=== PATIENT | male | born 1955 | race Caucasian/White ===

== ENCOUNTER 2017-12-26 14:44 | Outpatient (CLI) | payer MEDICARE ==
[2017-12-26 15:37] LABS: CREATININE 0.6 mg/dL (0.6-1.2)
[2017-12-26] MEDS ORDERED: GADOBUTROL 10 MMOL/10 ML VIAL ONE (16:08)
== END 2017-12-26 14:45 | disposition home or self-care (01) ==
LOC: DI 14:44
PROVIDERS: ATTEND Specialist
DX: Z01.812 Encounter for preprocedural laboratory examination (principal)
CPT/HCPCS: 36415; 72158; 82565

== ENCOUNTER 2018-01-17 13:44 | Outpatient (CLI) | payer MEDICARE ==
--- NOTE | 2018-01-18 19:25 | MRI Report ---
Procedure Date: 01/17/2018 Accession Number: [id number] / [id number] Procedure: MRI - Lumbar Spine W/O CPT Code: FULL RESULT: EXAM: MRI LUMBAR SPINE WITHOUT CONTRAST EXAM DATE: 01/17/2018 02:30 PM. CLINICAL HISTORY: Low back pain. COMPARISON: Lumbar radiograph 11/17/2012. TECHNIQUE: Multiplanar, multisequence T1-weighted and fluid-sensitive sequences of the lumbar spine from T12 to S1 without contrast. Other: None. FINDINGS: Alignment: There is 6 cm anterolisthesis of L4 on L5. No evidence for pars defects. Spinal Canal: The conus terminates at T12-L1. The conus medullaris and cauda equina are unremarkable. Bone Marrow: Five [id number] lumbar vertebral bodies are assumed. No gross fractures or bone lesions. No bone marrow replacement. Disk Levels/Facets: T12-L1: Unremarkable. L1-L2: Disk desiccation. No significant canal or foraminal narrowing. L2-L3: Disk desiccation. Posterior annular fissure. No significant canal or foraminal narrowing. L3-L4: Disk desiccation. Mild facet arthropathy. No significant canal or foraminal narrowing. L4-L5: Moderate disk height loss. Bilateral facet arthropathy and ligamentum flavum thickening. Focal rounded 4.5 mm T2 hyperintense medially projecting left facet synovial cyst. Mild bilateral subarticular narrowing. Mild to moderate canal narrowing. Mild bilateral foraminal narrowing. L5-S1: Disk desiccation. Mild facet arthropathy. No significant canal narrowing. Mild left foraminal narrowing secondary to a foraminal bulge. Musculature: Normal. No edema or fatty atrophy. Other: The partially visualized retroperitoneum is unremarkable. IMPRESSION: 1. 6 mm anterolisthesis of L4 on L5. No evidence for pars intra-articularis defects. 2. Mild to moderate canal narrowing at L4-L5 with mild bilateral subarticular narrowing. 3. At L4-L5, suspect 4.5 mm medially projecting left facet synovial cyst without impingement of the left L5 nerve root. Comment: The following findings are so common in adults without low back pain that while we report their presence, they must be interpreted with caution and in the context of the clinical situation. (Reference Juliank et al, Spine 2001) Prevalence of findings in patients without low back pain: Disk degeneration (any evidence): 92% Disk desiccation/T2 signal loss: 83% Disk height loss: 56% Disk bulge: 64% Disk protrusion: 32% Annular tear/high intensity zone: 38% RADIA
== END 2018-01-17 13:45 | disposition home or self-care (01) ==
LOC: DI 13:44
PROVIDERS: ATTEND Specialist
DX: M51.36 Other intervertebral disc degeneration, lumbar region (principal); M47.896 Other spondylosis, lumbar region; M43.16 Spondylolisthesis, lumbar region; M48.061 Spinal stenosis, lumbar region without neurogenic claudication
CPT/HCPCS: 72148

== ENCOUNTER 2018-12-07 17:22 | Outpatient (CLI) | payer MEDICARE ==
--- NOTE | 2018-12-07 22:52 | Ultrasound Report ---
Reason: BILATERAL LE EDEMA AND PAIN Procedure Date: 12/07/2018 Accession Number: [id number] / [id number] Procedure: US - Duplex Ext Veins Bilateral CPT Code: FULL RESULT: EXAM: BILATERAL LOWER EXTREMITY VENOUS ULTRASOUND EXAM DATE: 12/07/2018 06:11 PM. CLINICAL HISTORY: BILATERAL LE EDEMA AND PAIN. COMPARISON: None. TECHNIQUE: Real-time sonographic vascular imaging was performed by the sales support coordinator through the lower extremities utilizing both color-flow and Doppler spectral analysis. Multiple arborist representative static images were saved for review. FINDINGS: Right: Common Femoral Vein (CFV): Normal. CFV-GSV Junction: Normal. Profunda Femoral Vein (PFV): Normal. Femoral Vein (FV) Prox: Normal. Femoral Vein (FV) Mid: Normal. Femoral Vein (FV) Dist: Normal. Popliteal Vein: Normal. Posterior Tibial Veins: Normal. Peroneal Veins: Normal. Left: Common Femoral Vein (CFV): Normal. CFV-GSV Junction: Normal. Profunda Femoral Vein (PFV): Normal. Femoral Vein (FV) Prox: Normal. Femoral Vein (FV) Mid: Normal. Femoral Vein (FV) Dist: Normal. Popliteal Vein: Normal. Posterior Tibial Veins: Normal. Peroneal Veins: Normal. Other: None. IMPRESSION: No evidence for deep venous thrombosis bilaterally. RADIA
== END 2018-12-07 17:23 | disposition home or self-care (01) ==
LOC: DI 17:22
PROVIDERS: ATTEND Physician Assistant Medical
DX: M79.605 Pain in left leg (principal); M79.604 Pain in right leg; R60.0 Localized edema
CPT/HCPCS: 93970

== ENCOUNTER 2018-12-11 14:01 | Outpatient (CLI) | payer MEDICARE ==
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
== END 2018-12-11 14:02 | disposition home or self-care (01) ==
LOC: DI.N 14:01
PROVIDERS: ATTEND Specialist
DX: M17.11 Unilateral primary osteoarthritis, right knee (principal); M79.5 Residual foreign body in soft tissue

== ENCOUNTER 2018-12-27 14:39 | Outpatient (CLI) | payer MEDICARE ==
--- NOTE | 2018-12-29 10:25 | MRI Report ---
Reason: ACUTE R KNEE PAIN Procedure Date: 12/27/2018 Accession Number: [id number] / [id number] Procedure: MRI - Knee RT W/O CPT Code: FULL RESULT: EXAM: RIGHT KNEE MRI WITHOUT CONTRAST EXAM DATE: 12/27/2018 04:02 PM. CLINICAL HISTORY: Acute right knee pain and limited range of motion. COMPARISON: KNEE 3 VIEW RT 12/11/2018 2:23 PM. TECHNIQUE: Multiplanar, multisequence T1-weighted and fluid-sensitive sequences of the knee without contrast. Other: None. FINDINGS: Bones and articular cartilage: Full-thickness articular cartilage fissure/tear at the posterior lateral aspect of the medial femoral condyle. Subchondral marrow edema at the medial tibial plateau. Grade II chondromalacia of the medial tibial plateau. No acute fracture or bone lesions. Tiny patellar and medial femoral condylar osteophytes. Small patellar enthesophytes. Small partial-thickness articular cartilage fissure at the patella. Focal grade III-IV chondromalacia and subchondral marrow edema at the lateral trochlear facet. Medial Meniscus: Oblique tear involving the inner and middle thirds of the posterior horn. Lateral Meniscus: The lateral meniscus is intact. Cruciate Ligaments: The anterior and posterior cruciate ligaments are intact. Collateral Ligaments: The medial collateral and lateral collateral ligamentous structures are intact. Tendons: The quadriceps, patellar, semimembranosus, and popliteus tendons are unremarkable. Musculature: No edema or fatty atrophy. Other: Small joint effusion. No popliteal cyst. No loose bodies. The medial and lateral retinacula are intact. The subcutaneous tissues and fat pads are unremarkable. IMPRESSION: 1. Chondromalacia at the medial and patellofemoral compartments. 2. Oblique tear at the posterior horn medial meniscus. 3. Small joint effusion. RADIA
== END 2018-12-27 14:40 | disposition home or self-care (01) ==
LOC: DI 14:39
PROVIDERS: ATTEND Physician Assistant Medical
DX: S83.241A Other tear of medial meniscus, current injury, right knee, initial encounter (principal); M22.41 Chondromalacia patellae, right knee; M25.462 Effusion, left knee

== ENCOUNTER 2019-03-21 13:23 | Outpatient (CLI) | payer MEDICARE ==
[~2019-03-21 13:23] MED LIST: ALBUTEROL NEB 2.5 MG/3 ML INH SCH
== END 2019-03-21 13:24 | disposition home or self-care (01) ==
LOC: RT 13:23
PROVIDERS: ATTEND Physician Assistant Medical
DX: J44.9 Chronic obstructive pulmonary disease, unspecified (principal); R06.09 Other forms of dyspnea
CPT/HCPCS: 94060

== ENCOUNTER 2019-03-22 10:26 | Outpatient (CLI) | payer MEDICARE | END 2019-03-22 10:27 | disposition home or self-care (01) | LOC: DI 10:26 | PROVIDERS: ATTEND Physician Assistant Medical | DX: R06.00 Dyspnea, unspecified (principal); R60.0 Localized edema; I51.7 Cardiomegaly | CPT/HCPCS: 93306 ==

== ENCOUNTER 2020-07-16 11:11 | Outpatient (CLI) | payer MEDICARE ==
[2020-07-16] MEDS ORDERED: IOVERSOL 320 50 ML VIAL ONE (11:25)
[2020-07-16] MEDS ORDERED: IOVERSOL 320 100 ML VIAL IVP ONE ×2 (11:25→15:18)
[2020-07-16 11:34] LABS: CREATININE 0.8 mg/dL (0.6-1.2)
--- NOTE | 2020-07-16 14:24 | CT Report ---
PROCEDURE: Abdomen/Pelvis W INDICATIONS: ABD PAIN CONTRAST: IV CONTRAST: Optiray 320 ml: 100 PO CONTRAST: Optiray 320 ml50 TECHNIQUE: After the administration of oral and IV contrast, 5 mm thick sections acquired from the diaphragms to the symphysis. 5 mm thick coronal and sagittal reformats were acquired. For radiation dose reducti on, the following was used: automated exposure control, adjustment of mA and/or kV according to [place] ent size. COMPARISON: 05/30/2015 FINDINGS: Image quality: Excellent. ABDOMEN: Lung bases: Lung bases are clear. Heart size is normal. Solid organs: The liver is enlarged, moderately diffusely hypodense, and demonstrates focal 1.3 cm h ypodensity near the liver dome, likely a cyst or hemangioma. The spleen appears normal in size and en hancement. Gallbladder demonstrates phrygian cap morphology, but otherwise unremarkable. Biliary sy stem is non dilated. There is fatty replacement of much of the pancreas. No pancreatic ductal dilatat ion.. No adrenal nodules. Kidneys demonstrate normal size and enhancement, without hydronephrosis. 1.2 cm indeterminate exophytic cystic lesion arises from the anterior left upper pole. Peritoneum and bowel: Bowel loops demonstrate normal wall thickness and caliber. Normal appendix. N o free fluid or air. Nodes and vessels: No retroperitoneal or mesenteric adenopathy by size criteria. Aorta and inferior vena cava are normal in size. Miscellaneous: No ventral hernias. PELVIS: Genitourinary: Bladder wall thickness is normal. Normal size prostate gland. Miscellaneous: No inguinal hernias or adenopathy. Bones: No suspicious bony lesions. Chronic appearing superior endplate compression of T10. Right hip arthroplasty. Degenerative changes and grade 1 anterolisthesis in the lumbar spine at the L4-5 level . IMPRESSION: 1. Mild hepatomegaly and hepatic steatosis. Not significantly changed compared to the prior study. 2. 1.2 cm indeterminant cystic lesion arising from the upper pole of the left kidney, previously much smaller. Further evaluation with ultrasound or renal protocol CT/MRI is recommended. Reviewed by: Karma Majano MD on 07/16/2020 2:22 PM PST Approved by: Karma Majano MD on 07/16/2020 2:22 PM PST Station ID: [id number]
[2020-07-16] MEDS ORDERED: IOVERSOL 320 50 ML VIAL PO ONE (15:17)
== END 2020-07-16 11:12 | disposition home or self-care (01) ==
LOC: DI 11:11
PROVIDERS: ATTEND Family Medicine
DX: R10.9 Unspecified abdominal pain (principal); K76.0 Fatty (change of) liver, not elsewhere classified; R16.0 Hepatomegaly, not elsewhere classified; N28.1 Cyst of kidney, acquired
CPT/HCPCS: 36415; 74177; 82565; Q9967

== ENCOUNTER 2020-08-02 09:33 | Outpatient (CLI) | payer MEDICARE ==
[2020-08-02] MEDS ORDERED: IOVERSOL 320 100 ML VIAL IVP ONE ×3 (09:53→10:21)
--- NOTE | 2020-08-02 17:25 | CT Report ---
PROCEDURE: ABDOMEN W/WO INDICATIONS: LT RENAL CYST CONTRAST: IV CONTRAST: Optiray 320 ml: 140 PO CONTRAST: *NO PO CONTRAST TECHNIQUE: Prior to and after the uneventful intravenous administration of nonionic contrast axial images were p erformed of the abdomen utilizing a dedicated renal protocol study. Multiplanar reformats were provid ed. COMPARISON: None. FINDINGS: Image quality: Excellent. Lung bases: Lung bases are clear. Heart size is normal. Adrenal glands: CT abdomen and pelvis dated 07/16/2020 Solid organs: There is slight decreased hepatic attenuation diffusely. There is mild hepatomegaly, un changed. Fluid density 1.3 cm simple cyst within the dome of the liver. This is unchanged. Gallbladde r demonstrates bridging cap morphology, otherwise unremarkable. Biliary system is non dilated. Fatty infiltration of the pancreas, otherwise unremarkable. No hydronephrosis or nephrolithiasis. Kidneys are symmetric in enhancement. There is no hydronephrosis. No urinary tract calcifications. Th ere is no suspicious filling defect within the opacified collecting system on the delayed phase. Exop hytic 1.4 cm lesion noted along the superior pole of the left kidney medially measures approximately 29 Hounsfield units on precontrast as well as the arterial and delayed phases. No suspicious solid ma ss. Peritoneum and bowel: Unenhanced bowel loops are normal in caliber and wall thickness. No free flui d or air. Nodes and vessels: No retroperitoneal or mesenteric adenopathy by size criteria. Aorta and inferior vena cava are normal in size. Miscellaneous: No ventral hernias. Bones: No suspicious bony lesions. Chronic compression deformity of the superior endplate of T10 is unchanged. Unchanged grade 1 anterolisthesis of L4 on L5. IMPRESSION: Cystic lesion along the upper pole of the left kidney demonstrates no enhancement and is most consist ent with a mucinous or hemorrhagic cyst. No suspicious solid mass. Chronic findings as above. Reviewed by: Ze Montesinos DO on 08/02/2020 4:24 PM [place] Approved by: Ze Montesinos DO on 08/02/2020 4:24 PM AKST Station ID: [id number]
== END 2020-08-02 09:34 | disposition home or self-care (01) ==
LOC: DI 09:33
PROVIDERS: ATTEND Family Medicine
DX: N28.1 Cyst of kidney, acquired (principal)
CPT/HCPCS: 74170; Q9967

== ENCOUNTER 2020-09-04 15:09 | Outpatient (CLI) | payer MEDICARE ==
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
== END 2020-09-04 15:10 | disposition home or self-care (01) ==
LOC: DI.N 15:09
PROVIDERS: ATTEND Physician Assistant
DX: M25.511 Pain in right shoulder (principal); S49.91XA Unspecified injury of right shoulder and upper arm, initial encounter; M19.011 Primary osteoarthritis, right shoulder

== ENCOUNTER 2020-09-12 17:14 | Emergency (ER) | payer MEDICARE ==
[2020-09-12] MEDS ORDERED: SODIUM CHLORIDE 0.9% 1,000 ML IV STA ×3 (17:51→18:27)
[2020-09-12 17:55] LABS: BASOPHILS # (AUTO) 0.1 10^3/uL (0.0-0.1); BASOPHILS % (AUTO) 0.4 %; EOSINOPHILS % (AUTO) 0.1 %; HCT - HEMATOCRIT 42.5 % (42.0-52.0); HGB - HEMOGLOBIN 13.9 g/dL (14.0-18.0); LYMPHOCYTES # (AUTO) 1.4 10^3/uL (1.5-3.5); LYMPHOCYTES % (AUTO) 8.7 %; MEAN CORPUSCULAR HEMOGLOBIN 30.2 pg (27.0-31.0); MEAN CORPUSCULAR HGB CONC 32.7 g/dL (32.0-36.0); MEAN CORPUSCULAR VOLUME 92.2 fL (80.0-94.0); MEAN PLATELET VOLUME 9.8 fL (7.4-11.4); MONOCYTES # (AUTO) 1.1 10^3/uL (0.0-1.0); MONOCYTES % (AUTO) 6.8 %; NEUTROPHILS # (AUTO) 13.1 10^3/uL (1.5-6.6); NEUTROPHILS % (AUTO) 83.7 %; PLT - PLATELET COUNT 299 10^3/uL (130-450); RED BLOOD COUNT 4.61 10^6/uL (4.70-6.10); RED CELL DISTRIBUTION WIDTH 13.5 % (12.0-15.0); WHITE BLOOD COUNT 15.7 x10^3/uL (4.8-10.8)
--- NOTE | 2020-09-12 18:03 | ED Physician Documentation ---
History of Present Illness - Stated complaint Stated Complaint: OD - Chief complaint Chief Complaint: Neuro - History obtained from History obtained from: Patient, Family - History of Present Illness Timing: Unknown Pain level max: 0 Pain level now: 0 - Additonal information Additional information: 65-year-old male presents to the emergency department after being brought in by his clarisa. She states he received 168 hydrocodone 10/325 tablets 2 days ago. She checked the bottle today and approximately 120 pills are missing. She states that the patient is more confused than usual and appears drowsy. Patient denies taking the medication. He states he does not know what happened to the medication. He states that he is not suicidal or homicidal. Patient denies any alcohol or drug use. Nothing makes it better or worse. He is on hydrocodone and morphine for shoulder pain Patient states he has not taken any pills since last night Review of Systems Unable to obtain: AMS, Confused Constitutional: denies: Fever, Chills Cardiac: denies: Chest pain / pressure Respiratory: denies: Cough GI: denies: Vomiting Skin: denies: Rash Musculoskeletal: denies: Neck pain Neurologic: denies: Headache PD PAST MEDICAL HISTORY - Past Medical History Cardiovascular: Hypertension, High cholesterol Respiratory: COPD Endocrine/Autoimmune: None GI: GERD, Colon polyps, Diverticulitis : None HEENT: Chronic hearing loss, Other Psych: Depression, Anxiety, Panic attacks Musculoskeletal: Osteoarthritis, Chronic back pain Derm: Psoriasis, Other - Past Surgical History Past Surgical History: Yes Ortho: Hip replacement, Knee replacement, Shoulder arthroplasty, Other - Present Medications Home Medications: Ambulatory Orders Medication Instructions Recorded Confirmed busPIRone [Buspar] 5 mg PO BID 05/04/14 09/12/20 Omeprazole 10 mg PO BID 03/06/15 09/12/20 clonazePAM [Clonazepam] 1 mg PO BID 03/06/15 11/18/15 HYDROcodone/ACET 10/325 [Briggs 10 1 tab PO DAILY 11/07/15 09/12/20 mg/325 mg] Morphine Sulfate/0.9% NaCl/Pf 30 mg PO BID 11/07/15 09/12/20 [Morphine 30 mg/30 ml-0.9% NaCl] Metoprolol Tartrate [Lopressor] 50 mg PO BID 11/18/15 09/12/20 Aspirin [Aspirin EC] 1 tab PO DAILY 09/12/20 09/12/20 - Allergies Allergies/Adverse Reactions: Allergies Allergy/AdvReac Type Severity Reaction Status Date / Time No Known Drug Allergies Allergy Verified 09/12/20 17:15 - Social History Does the pt smoke?: Yes Smoking Status: Light tobacco smoker Does the pt drink ETOH?: No Does the pt have substance abuse?: No - Immunizations Immunizations are current?: Yes - POLST Patient has POLST: No PD ED PE NORMAL - Vitals Vital signs reviewed: Yes - General General: No acute distress, Other (drowsy, slurring speech) - HEENT HEENT: EOMI, Moist mucous membranes, Pharynx benign, Other (pinpoint pupils B) - Neck Neck: Supple, no meningeal sign - Cardiac Cardiac: RRR, Strong equal pulses - Respiratory Respiratory: No respiratory distress, Clear bilaterally - Abdomen Abdomen: Soft, Non tender, Non distended - Derm Derm: Warm and dry - Extremities Extremities: No edema - Neuro Neuro: nurse ob 2-12 intact, No motor deficit, No sensory deficit Eye Opening: Spontaneous Motor: Obeys Commands Verbal: Oriented GCS Score: 15 Results - Vitals Vitals: Vital Signs - 24 hr 09/12/20 09/12/20 09/12/20 17:19 17:50 17:52 Temperature 37.3 C Heart Rate 116 H 114 H Respiratory 24 16 Rate Blood Pressure 147/110 H 79/55 L O2 Saturation 88 L 83 L 92 09/12/20 09/12/20 09/12/20 17:53 17:57 18:50 Temperature Heart Rate 115 H 114 H 113 H Respiratory 19 17 11 L Rate Blood Pressure 93/61 95/64 108/58 L O2 Saturation 93 92 91 L 09/12/20 09/12/20 09/12/20 19:02 19:56 20:00 Temperature Heart Rate 113 H 111 H 116 H Respiratory 15 12 16 Rate Blood Pressure 108/58 L 96/59 L O2 Saturation 92 98 92 09/12/20 09/12/20 09/12/20 20:26 20:30 21:00 Temperature 37.3 C 37.3 C Heart Rate 115 H 116 H 115 H Respiratory 12 16 15 Rate Blood Pressure 96/59 L 130/78 125/79 O2 Saturation 100 91 L 91 L Oxygen O2 Source Room air - EKG (time done) 1732 Rate: Rate (enter#) (117) Rhythm: Sinus tachycardia [place]: Normal Intervals: Normal ME QRS: Normal Ischemia: Normal ST segments, Q waves (Q waves in III and aVF) - Labs Labs: Laboratory Tests 09/12/20 09/12/20 09/12/20 17:45 17:45 17:45 WBC 15.7 H RBC 4.61 L Hgb 13.9 L Hct 42.5 MCV 92.2 MCH 30.2 MCHC 32.7 RDW 13.5 Plt Count 299 MPV 9.8 Neut # (Auto) 13.1 H Lymph # (Auto) 1.4 L Jerome # (Auto) 1.1 H Eos # (Auto) 0.0 Baso # (Auto) 0.1 Absolute Nucleated RBC 0.00 Nucleated RBC % 0.0 PT INR Sodium 137 Potassium 4.8 Chloride 95 L Carbon Dioxide 23 Anion Gap 19.0 H BUN 36 H Creatinine 3.8 H Estimated GFR (MDRD) 16 L Glucose 200 H Calcium 8.5 Total Bilirubin 1.0 AST 189 H ALT 66 H Alkaline Phosphatase 77 Ammonia Troponin I High Sens B-Natriuretic Peptide Total Protein 7.7 Albumin 4.3 Globulin 3.4 Albumin/Globulin Ratio 1.3 Lipase 15 L TSH 0.73 Nasal Adenovirus (PCR) Nasal B. parapertussis DNA (PCR) Nasal Coronavir 229E PCR Nasal Coronavir HKU1 PCR Nasal Coronavir NL63 PCR Nasal Coronavir OC43 PCR Nasal Enterovir/Rhinovir PCR Nasal Influenza B PCR Nasal Influenza A PCR Nasal Parainfluen 1 PCR Nasal Parainfluen 2 PCR Nasal Parainfluen 3 PCR Nasal Parainfluen 4 PCR Nasal RSV (PCR) Nasal B.pertussis DNA PCR Nasal C.pneumoniae (PCR) Kennedy Human Metapneumo PCR Nasal M.pneumoniae (PCR) Nasal SARS-CoV-2 (PCR) Salicylates < 6.0 Acetaminophen < 10 L Ethyl Alcohol < 5.0 09/12/20 09/12/20 09/12/20 17:45 17:45 18:36 WBC RBC Hgb Hct MCV MCH MCHC RDW Plt Count MPV Neut # (Auto) Lymph # (Auto) Jerome # (Auto) Eos # (Auto) Baso # (Auto) Absolute Nucleated RBC Nucleated RBC % PT 12.7 H INR 1.1 Sodium Potassium Chloride Carbon Dioxide Anion Gap BUN Creatinine Estimated GFR (MDRD) Glucose Calcium Total Bilirubin AST ALT Alkaline Phosphatase Ammonia Troponin I High Sens 1594.1 H* B-Natriuretic Peptide 518 H Total Protein Albumin Globulin Albumin/Globulin Ratio Lipase TSH Nasal Adenovirus (PCR) Nasal B. parapertussis DNA (PCR) Nasal Coronavir 229E PCR Nasal Coronavir HKU1 PCR Nasal Coronavir NL63 PCR Nasal Coronavir OC43 PCR Nasal Enterovir/Rhinovir PCR Nasal Influenza B PCR Nasal Influenza A PCR Nasal Parainfluen 1 PCR Nasal Parainfluen 2 PCR Nasal Parainfluen 3 PCR Nasal Parainfluen 4 PCR Nasal RSV (PCR) Nasal B.pertussis DNA PCR Nasal C.pneumoniae (PCR) Kennedy Human Metapneumo PCR Nasal M.pneumoniae (PCR) Nasal SARS-CoV-2 (PCR) Salicylates Acetaminophen Ethyl Alcohol 09/12/20 09/12/20 09/12/20 18:55 19:10 20:31 WBC RBC Hgb Hct MCV MCH MCHC RDW Plt Count MPV Neut # (Auto) Lymph # (Auto) Jerome # (Auto) Eos # (Auto) Baso # (Auto) Absolute Nucleated RBC Nucleated RBC % PT INR Sodium Potassium Chloride Carbon Dioxide Anion Gap BUN Creatinine Estimated GFR (MDRD) Glucose Calcium Total Bilirubin AST ALT Alkaline Phosphatase Ammonia 37.5 H Troponin I High Sens B-Natriuretic Peptide Total Protein Albumin Globulin Albumin/Globulin Ratio Lipase TSH Nasal Adenovirus (PCR) NOT DETECTED Nasal B. parapertussis DNA (PCR) NOT DETECTED Nasal Coronavir 229E PCR NOT DETECTED Nasal Coronavir HKU1 PCR NOT DETECTED Nasal Coronavir NL63 PCR NOT DETECTED Nasal Coronavir OC43 PCR NOT DETECTED Nasal Enterovir/Rhinovir PCR NOT DETECTED Nasal Influenza B PCR NOT DETECTED Nasal Influenza A PCR NOT DETECTED Nasal Parainfluen 1 PCR NOT DETECTED Nasal Parainfluen 2 PCR NOT DETECTED Nasal Parainfluen 3 PCR NOT DETECTED Nasal Parainfluen 4 PCR NOT DETECTED Nasal RSV (PCR) NOT DETECTED Nasal B.pertussis DNA PCR NOT DETECTED Nasal C.pneumoniae (PCR) NOT DETECTED Kennedy Human Metapneumo PCR NOT DETECTED Nasal M.pneumoniae (PCR) NOT DETECTED Nasal SARS-CoV-2 (PCR) NOT DETECTED Salicylates Acetaminophen < 10 L Ethyl Alcohol - Rads (name of study) cxr Radiology: Prelim report reviewed, EMP read contemporaneously, See rad report (No acute abnormality) PD MEDICAL DECISION MAKING - ED course Complexity details: reviewed results, re-evaluated patient, considered differential, d/w patient, d/w advisor consultant ED course: Patient is a 65-year-old male who was brought into the emergency department for concern of potential overdose on hydrocodone acetaminophen . Patient denies overdosing. Initial acetaminophen level is negative. He is hypotensive and hypoxic initially upon arrival. EKG does not show any acute ischemic changes. High-sensitivity troponin is greater than 1500. He also appears to be in renal failure which is new for him. Baseline creatinine is around 0.9. He is at 3.8 today. Given IV fluids. Started on a heparin drip. Denies any chest pain. Will need to be transferred for further cardiac care. Discussed the case with Dr. Hood who graciously accepts in transfer. Also discussed with Dr. Heath, cardiology, recommends echocardiogram in the morning and to consult Dr. Brantley tomorrow. Patient maintained on a heparin drip. Bladder scan is 298. This document was made in part using voice recognition software. While efforts are made to proofread this document, sound alike and grammatical errors may occur. Departure - Departure Disposition: 02 Transfer Acute Care Hosp Clinical Impression: NSTEMI (non-ST elevated myocardial infarction), Acute renal insufficiency, Tachycardia Leukocytosis Qualifiers: Leukocytosis type: unspecified Qualified Code(s): D72.829 - Elevated white blood cell count, unspecified Condition: Stable
[2020-09-12 18:19] LABS: ACETAMINOPHEN < 10 ug/mL (10-30); ALBUMIN 4.3 g/dL (3.2-5.5); ALBUMIN/GLOBULIN RATIO 1.3 (1.0-2.2); ALKALINE PHOSPHATASE 77 IU/L (42-121); ALT ALANINE AMINOTRANSFERASE 66 IU/L (10-60); AST ASPARTATE AMINOTRANSFERASE 189 IU/L (10-42); BUN - BLOOD UREA NITROGEN 36 mg/dL (6-20); CALCIUM 8.5 mg/dL (8.5-10.3); CARBON DIOXIDE - CO2 23 mmol/L (21-32); CHLORIDE 95 mmol/L (101-111); CREATININE 3.8 mg/dL (0.6-1.2); ETOH - ETHANOL < 5.0 mg/dL; GFR - MDRD 16 (>89); GLUCOSE 200 mg/dL (70-100); LIPASE 15 U/L (22-51); POTASSIUM 4.8 mmol/L (3.5-5.0); SALICYLATE < 6.0 mg/dL; SODIUM 137 mmol/L (135-145); TOTAL PROTEIN 7.7 g/dL (6.7-8.2)
[2020-09-12 18:47] LABS: INR 1.1 (0.8-1.2); PT - PROTHROMBIN TIME 12.7 secs (9.9-12.6)
--- NOTE | 2020-09-12 18:48 | XRAY Report ---
PROCEDURE: Chest 1 View X-Ray INDICATIONS: hypoxia TECHNIQUE: One view of the chest was acquired. COMPARISON: None FINDINGS: Surgical changes and devices: None. Lungs and pleura: No pleural effusions or pneumothorax. Lungs are clear. Mediastinum: Mediastinal contours appear normal. Heart size is enlarged. Bones and chest wall: No suspicious bony lesions. Overlying soft tissues appear unremarkable. IMPRESSION: No acute cardiopulmonary pathology. Reviewed by: Nikhil Alford MD on 09/12/2020 6:47 PM PDT Approved by: Nikhil Alford MD on 09/12/2020 6:47 PM PDT Station ID: [id number]
[2020-09-12 20:00] LABS: B. PARAPERTUSSIS- RESP PCR PAN NOT DETECTED; B. PERTUSSIS- RESP PCR PANEL NOT DETECTED; C. PNEUMONIAE- RESP PCR PANEL NOT DETECTED; CORONAVIRUS 229E-RESP PCR NOT DETECTED; CORONAVIRUS HKU1-RESP PCR NOT DETECTED; CORONAVIRUS NL63-RESP PCR NOT DETECTED; CORONAVIRUS OC43-RESP PCR NOT DETECTED; HUMAN METAPNEUMOVIRUS NOT DETECTED; INFLUENZA A- RESP PCR PANEL NOT DETECTED; INFLUENZA B - RESP PCR PANEL NOT DETECTED; M. PNEUMONIAE- RESP PCR PANEL NOT DETECTED; PARAINFLUENZA VIRUS 1 NOT DETECTED; PARAINFLUENZA VIRUS 2 NOT DETECTED; PARAINFLUENZA VIRUS 3 NOT DETECTED; PARAINFLUENZA VIRUS 4 NOT DETECTED; RHINOVIRUS/ENTEROVIRUS NOT DETECTED; RSV- RESP PCR PANEL NOT DETECTED; SARS-CoV-2 -RESP PCR PANEL NOT DETECTED
[2020-09-12] MEDS ORDERED: HEPARIN 25000UNITS/500ML (D5W) 25,000 UNIT/500 ML BAG IV SCH (20:00)
[2020-09-12 22:16] VITALS: BP 99/85
== END 2020-09-12 22:45 | disposition short-term general hospital (02) ==
LOC: ED 17:14
DX: I21.4 Non-ST elevation (NSTEMI) myocardial infarction (principal); N28.9 Disorder of kidney and ureter, unspecified; D72.829 Elevated white blood cell count, unspecified; R00.0 Tachycardia, unspecified; F17.200 Nicotine dependence, unspecified, uncomplicated
CPT/HCPCS: 36415; 51798; 71045; 80053; 80307; 82140; 83690; 83880; 84443; 84484; 85025; 85610; 87631; 93005; 96361; 96365; 96366; 96376; 99285; G0480; 0202U; 80320; 80329

== ENCOUNTER 2020-09-12 22:14 | Outpatient (CLI) | payer MEDICARE | END 2020-09-12 22:15 | disposition short-term general hospital (02) | LOC: EMS 22:14 | PROVIDERS: ATTEND Emergency Medicine | DX: I21.4 Non-ST elevation (NSTEMI) myocardial infarction (principal); N17.9 Acute kidney failure, unspecified | CPT/HCPCS: A0425; A0426 ==

== ENCOUNTER 2020-09-21 16:29 | Emergency (ER) | payer MEDICARE ==
--- NOTE | 2020-09-21 16:42 | ED Physician Documentation ---
History of Present Illness - Stated complaint Stated Complaint: HIGH BP,SOA - Chief complaint Chief Complaint: Cardiac - History obtained from History obtained from: Patient - Additonal information Additional information: He was seen here by Dr. Trevino on the of this month. The initial concern was for a potential Vicodin overdose but was found to be in acute renal failure with elevated troponin and biochemical evidence of CHF. He was transferred over to [facility], he says he was released approximately 5 days ago. While there he states he had an angiogram which was negative. It is not clear to his understanding why he was having acute renal failure. He was doing well on discharge but last night developed shortness of breath and orthopnea without chest pain or cough. There is no new pedal edema. He had been having some pedal edema, assume associated with his acute renal failure, that has gotten better. Review of Systems Ten Systems: 10 systems reviewed and negative Constitutional: denies: Fever, Chills Throat: denies: Dental pain / toothache, Sore throat Cardiac: denies: Chest pain / pressure, Palpitations Respiratory: reports: Dyspnea. denies: Cough GI: denies: Abdominal Pain, Nausea, Vomiting PD PAST MEDICAL HISTORY - Past Medical History Cardiovascular: Hypertension, High cholesterol Respiratory: COPD Endocrine/Autoimmune: None GI: GERD, Colon polyps, Diverticulitis : None HEENT: Chronic hearing loss, Other Psych: Depression, Anxiety, Panic attacks Musculoskeletal: Osteoarthritis, Chronic back pain Derm: Psoriasis, Other - Past Surgical History Past Surgical History: Yes Ortho: Hip replacement, Knee replacement, Shoulder arthroplasty, Other - Present Medications Home Medications: Ambulatory Orders Medication Instructions Recorded Confirmed busPIRone [Buspar] 5 mg PO BID 05/04/14 09/12/20 Omeprazole 10 mg PO BID 03/06/15 09/12/20 clonazePAM [Clonazepam] 1 mg PO BID 03/06/15 11/18/15 HYDROcodone/ACET 10/325 [[place] 10 1 tab PO DAILY 11/07/15 09/12/20 mg/325 mg] Morphine Sulfate/0.9% NaCl/Pf 30 mg PO BID 11/07/15 09/12/20 [Morphine 30 mg/30 ml-0.9% NaCl] Metoprolol Tartrate [Lopressor] 50 mg PO BID 11/18/15 09/12/20 Aspirin [Aspirin EC] 1 tab PO DAILY 09/12/20 09/12/20 Metformin HCl [Metformin ER 1,000 mg PO BID 09/12/20 09/12/20 Gastric] - Allergies Allergies/Adverse Reactions: Allergies Allergy/AdvReac Type Severity Reaction Status Date / Time No Known Drug Allergies Allergy Verified 09/21/20 16:40 - Social History Does the pt smoke?: Yes Smoking Status: Light tobacco smoker Does the pt drink ETOH?: No Does the pt have substance abuse?: No - Immunizations Immunizations are current?: Yes - POLST Patient has POLST: No PD ED PE NORMAL - Vitals Vital signs reviewed: Yes - General General: Alert and oriented X 3, No acute distress - HEENT HEENT: PERRL, EOMI - Neck Neck: Supple, no meningeal sign, No bony TTP - Cardiac Cardiac: RRR, No murmur - Respiratory Respiratory: Other (Mildly labored and diminished at the right base. Note room air pox oximetry read around 89 to 90%.) - Abdomen Abdomen: Soft, Non tender - Back Back: No CVA TTP, No spinal TTP - Derm Derm: Normal color, Warm and dry - Extremities Extremities: No edema, No calf tenderness / cord - Neuro Neuro: Alert and oriented X 3, Normal speech Results - Vitals Vitals: Vital Signs - 24 hr 09/21/20 09/21/20 09/21/20 16:35 16:42 17:28 Temperature 36.4 C L 36.4 C L Heart Rate 80 80 Respiratory 20 20 Rate Blood Pressure 115/94 H 115/94 H O2 Saturation 89 L 89 L 94 09/21/20 09/21/20 09/21/20 18:00 19:03 19:28 Temperature 36.9 C Heart Rate 82 80 Respiratory 18 14 Rate Blood Pressure 124/99 H 136/87 H O2 Saturation 94 94 94 09/21/20 19:29 Temperature Heart Rate 79 Respiratory 16 Rate Blood Pressure O2 Saturation Oxygen O2 Source Room air Oxygen Flow Rate 2 - EKG (time done) 1636 Rate: Rate (enter#) (82) Rhythm: NSR [place]: LAD Intervals: Normal [place] QRS: Normal Ischemia: Non specific changes Computer interpretation: Agree with computer - Labs Labs: Laboratory Tests 09/21/20 09/21/20 09/21/20 16:54 16:54 16:54 WBC 6.1 RBC 4.01 L Hgb 12.0 L Hct 36.0 L MCV 89.8 MCH 29.9 MCHC 33.3 RDW 12.3 Plt Count 426 MPV 9.0 Neut # (Auto) 3.3 Lymph # (Auto) 2.1 [place] # (Auto) 0.4 Eos # (Auto) 0.2 Baso # (Auto) 0.1 Absolute Nucleated RBC 0.00 Nucleated RBC % 0.0 D-Dimer 553.8 H Sodium 136 Potassium 4.4 Chloride 98 L Carbon Dioxide 29 Anion Gap 9.0 BUN 15 Creatinine 0.8 Estimated GFR (MDRD) 98 Glucose 160 H Calcium 8.9 Total Bilirubin 0.7 AST 23 ALT 27 Alkaline Phosphatase 68 Troponin I High Sens B-Natriuretic Peptide Total Protein 7.1 Albumin 3.5 Globulin 3.6 Albumin/Globulin Ratio 1.0 Lipase 18 L Nasal Adenovirus (PCR) Nasal B. parapertussis DNA (PCR) Nasal Coronavir 229E PCR Nasal Coronavir HKU1 PCR Nasal Coronavir NL63 PCR Nasal Coronavir OC43 PCR Nasal Enterovir/Rhinovir PCR Nasal Influenza B PCR Nasal Influenza A PCR Nasal Parainfluen 1 PCR Nasal Parainfluen 2 PCR Nasal Parainfluen 3 PCR Nasal Parainfluen 4 PCR Nasal RSV (PCR) Nasal B.pertussis DNA PCR Nasal C.pneumoniae (PCR) [place] Human Metapneumo PCR Nasal M.pneumoniae (PCR) Nasal SARS-CoV-2 (PCR) 09/21/20 09/21/20 09/21/20 16:54 16:54 17:02 WBC RBC Hgb Hct MCV MCH MCHC RDW Plt Count MPV Neut # (Auto) Lymph # (Auto) [place] # (Auto) Eos # (Auto) Baso # (Auto) Absolute Nucleated RBC Nucleated RBC % D-Dimer Sodium Potassium Chloride Carbon Dioxide Anion Gap BUN Creatinine Estimated GFR (MDRD) Glucose Calcium Total Bilirubin AST ALT Alkaline Phosphatase Troponin I High Sens 11.2 B-Natriuretic Peptide 135 H Total Protein Albumin Globulin Albumin/Globulin Ratio Lipase Nasal Adenovirus (PCR) NOT DETECTED Nasal B. parapertussis DNA (PCR) NOT DETECTED Nasal Coronavir 229E PCR NOT DETECTED Nasal Coronavir HKU1 PCR NOT DETECTED Nasal Coronavir NL63 PCR NOT DETECTED Nasal Coronavir OC43 PCR NOT DETECTED Nasal Enterovir/Rhinovir PCR NOT DETECTED Nasal Influenza B PCR NOT DETECTED Nasal Influenza A PCR NOT DETECTED Nasal Parainfluen 1 PCR NOT DETECTED Nasal Parainfluen 2 PCR NOT DETECTED Nasal Parainfluen 3 PCR NOT DETECTED Nasal Parainfluen 4 PCR NOT DETECTED Nasal RSV (PCR) NOT DETECTED Nasal B.pertussis DNA PCR NOT DETECTED Nasal C.pneumoniae (PCR) NOT DETECTED [place] Human Metapneumo PCR NOT DETECTED Nasal M.pneumoniae (PCR) NOT DETECTED Nasal SARS-CoV-2 (PCR) NOT DETECTED - Rads (name of study) 1v chest Radiology: EMP read contemporaneously (low inspiration) CTA Chest Radiology: EMP read contemporaneously (atalectasis at Right base) PD MEDICAL DECISION MAKING - ED course ED course: 65-year-old gentleman presents with shortness of breath, decreased breath sounds at the right base. D-dimer high given recent admission but no evidence of CHF or CA. Chest x-ray relatively unrevealing this was followed by CT of the chest given his high D-dimer which was most consistent with atelectasis. He is feeling better after albuterol. Given the lack of fever or white count I do not think this represents pneumonia. He was not hypoxic after the albuterol. Departure - Departure Disposition: 01 Home, Self Care Clinical Impression: Atelectasis Dyspnea Qualifiers: Dyspnea type: dyspnea on exertion Qualified Code(s): R06.00 - Dyspnea, unspecified Condition: Stable Instructions: ED Dyspnea Shortness of Breath Comments: Followup as recommended on discharge from [facility] Return if worse Use your inhaler that you have.
[2020-09-21 17:03] LABS: BASOPHILS # (AUTO) 0.1 10^3/uL (0.0-0.1); EOSINOPHILS # (AUTO) 0.2 10^3/uL (0.0-0.7); LYMPHOCYTES # (AUTO) 2.1 10^3/uL (1.5-3.5); LYMPHOCYTES % (AUTO) 34.3 %; MEAN CORPUSCULAR HEMOGLOBIN 29.9 pg (27.0-31.0); MEAN CORPUSCULAR HGB CONC 33.3 g/dL (32.0-36.0); MEAN CORPUSCULAR VOLUME 89.8 fL (80.0-94.0); MONOCYTES # (AUTO) 0.4 10^3/uL (0.0-1.0); MONOCYTES % (AUTO) 6.7 %; NEUTROPHILS # (AUTO) 3.3 10^3/uL (1.5-6.6); NEUTROPHILS % (AUTO) 54.3 %; PLT - PLATELET COUNT 426 10^3/uL (130-450); RED BLOOD COUNT 4.01 10^6/uL (4.70-6.10); RED CELL DISTRIBUTION WIDTH 12.3 % (12.0-15.0); WHITE BLOOD COUNT 6.1 x10^3/uL (4.8-10.8)
[2020-09-21 17:18] LABS: ALBUMIN 3.5 g/dL (3.2-5.5); BILIRUBIN,TOTAL 0.7 mg/dL (0.2-1.0); CALCIUM 8.9 mg/dL (8.5-10.3); CREATININE 0.8 mg/dL (0.6-1.2); POTASSIUM 4.4 mmol/L (3.5-5.0); TOTAL PROTEIN 7.1 g/dL (6.7-8.2)
--- NOTE | 2020-09-21 17:18 | XRAY Report ---
PROCEDURE: Chest 1 View X-Ray INDICATIONS: Chest Pain TECHNIQUE: One view of the chest was acquired. COMPARISON: 09/12/2020, 12/04/2013 FINDINGS: Surgical changes and devices: Postoperative change of the right shoulder can be seen. Lungs and pleura: An incomplete inspiratory result is noted, with low lung volumes and crowding of t he vascular markings. Streaky opacities can be seen at the lung bases, right worse than left. No la rge pneumothorax or large pleural effusion can be seen. Mediastinum: The aorta is prominent and tortuous. The cardiac contours are within normal limits. Bones and chest wall: No suspicious bony lesions. Overlying soft tissues appear unremarkable. IMPRESSION: Low lung volumes, with likely atelectasis at the lung bases, right worse than left. Reviewed by: Julio Alvarez MD on 09/21/2020 4:16 PM ANTONI Approved by: Julio Alvarez MD on 09/21/2020 4:16 PM ANTONI Station ID: [id number]
[2020-09-21] MEDS ORDERED: IOVERSOL 320 100 ML VIAL IVP ONE ×2 (17:46→18:02)
[2020-09-21 18:03] LABS: B. PARAPERTUSSIS- RESP PCR PAN NOT DETECTED; B. PERTUSSIS- RESP PCR PANEL NOT DETECTED; C. PNEUMONIAE- RESP PCR PANEL NOT DETECTED; CORONAVIRUS 229E-RESP PCR NOT DETECTED; CORONAVIRUS HKU1-RESP PCR NOT DETECTED; CORONAVIRUS NL63-RESP PCR NOT DETECTED; CORONAVIRUS OC43-RESP PCR NOT DETECTED; HUMAN METAPNEUMOVIRUS NOT DETECTED; INFLUENZA A- RESP PCR PANEL NOT DETECTED; INFLUENZA B - RESP PCR PANEL NOT DETECTED; M. PNEUMONIAE- RESP PCR PANEL NOT DETECTED; PARAINFLUENZA VIRUS 1 NOT DETECTED; PARAINFLUENZA VIRUS 2 NOT DETECTED; PARAINFLUENZA VIRUS 3 NOT DETECTED; PARAINFLUENZA VIRUS 4 NOT DETECTED; RHINOVIRUS/ENTEROVIRUS NOT DETECTED; RSV- RESP PCR PANEL NOT DETECTED; SARS-CoV-2 -RESP PCR PANEL NOT DETECTED
--- NOTE | 2020-09-21 19:09 | CT Report ---
PROCEDURE: ANGIO CHEST W/WO INDICATIONS: dyspnea, high dimer, PE protocol CONTRAST: IV CONTRAST: Optiray 320 ml: 80 PO CONTRAST: *NO PO CONTRAST TECHNIQUE: After the administration of intravenous contrast, 2 mm thick sections acquired from the pulmonary api harvey to the posterior costophrenic angles. 3-dimensional maximum intensity projection (MIP) coronal a nd sagittal reformats were then acquired through the thorax. For radiation dose reduction, the follow ing was used: automated exposure control, adjustment of mA and/or kV according to patient size. COMPARISON: None. FINDINGS: Image quality: Suboptimal secondary to motion artifact. There is also poor contrast filling of the s egmental pulmonary arteries. Pulmonary arteries: Pulmonary arteries are normal in size, and demonstrate no intraluminal filling d efects to suggest central pulmonary embolism. The segmental pulmonary arteries not well visualized d ue to motion artifact and poor contrast opacification. Lungs and pleura: Patchy consolidation present within the right lung base. There is scattered scarrin g/atelectasis seen in the left lower lobe. No pleural effusions or pneumothorax. Central and peripheral airways are patent. Mediastinum: Heart size is normal, without pericardial effusion. No mediastinal or hilar adenopathy . Thoracic aorta is normal in caliber and enhancement. Esophagus is normal in caliber, without hiat al hernia. Bones and chest wall: No suspicious bony lesions. Age T10 compression fracture with mild height loss The thyroid is normal. No axillary or supraclavicular adenopathy. Abdomen: Visualized upper abdominal solid organs appear normal in the early arterial phase of enhanc ement. IMPRESSION: Suboptimal evaluation due to respiratory motion artifact. No gross or central pulmonary embolism. The distal segmental pulmonary arterial vasculature is not well evaluated. Patchy consolidation within the right lung base presumably scarring/atelectasis versus pneumonia. If there is persistent clinical diagnostic uncertainty, recommend short interval follow-up chest radiogr aphs after treatment for further assessment. Age-indeterminate mild T10 compression fracture Reviewed by: Marcin Altman MD on 09/21/2020 7:08 PM PDT Approved by: Marcin Altman MD on 09/21/2020 7:08 PM PDT Station ID: [id number]
[2020-09-21] MEDS ORDERED: ALBUTEROL NEB 2.5 MG/3 ML INH STA (19:14)
[2020-09-21 20:01] VITALS: BP 123/74
== END 2020-09-21 20:18 | disposition home or self-care (01) ==
LOC: ED 16:29
DX: J98.11 Atelectasis (principal); R79.1 Abnormal coagulation profile; I10 Essential (primary) hypertension; Z72.0 Tobacco use; Z20.822 Contact with and (suspected) exposure to COVID-19
CPT/HCPCS: 36415; 71045; 71275; 80053; 83690; 83880; 84484; 85025; 85379; 87631; 93005; 94640; 99284; Q9967; 0202U

== ENCOUNTER 2020-10-14 17:30 | Emergency (ER) | payer MEDICARE ==
--- OUTSIDE RECORDS SUMMARY | 2020-10-14 17:33 | EXTERNAL MEDICAL SUMMARY RPT | Continuity of Care Document ---
:1955 Demographics Phone Unavailable Preferred Language New Zealander Marital Status Unknown Moravian Affiliation Unknown Race Unknown Ethnic Group Unknown Author Organization [place] Address [address] [place] [address] Phone Care Team Providers Name Role Phone Lemme Unavailable Unavailable Problems date description facility [id number] Dyspnea, unspecified [facility] [id number] Other cardiomyopathies [facility] Social History date description facility [id number]
--- OUTSIDE RECORDS SUMMARY | 2020-10-14 17:35 | EXTERNAL MEDICAL SUMMARY RPT | Continuity of Care Document ---
:1955 Demographics Phone Unavailable Preferred Language Georgian Marital Status Unknown Muslim Affiliation Unknown Race Unknown Ethnic Group Unknown Author Organization [place] Address [address] [place] [address] Phone Care Team Providers Name Role Phone Lemme Unavailable Unavailable Problems date description facility [id number] Dyspnea, unspecified [facility] [id number] Other cardiomyopathies [facility] Social History date description facility [id number]
[2020-10-14 17:52] LABS: BASOPHILS # (AUTO) 0.1 10^3/uL (0.0-0.1); BASOPHILS % (AUTO) 1.4 %; EOSINOPHILS # (AUTO) 0.2 10^3/uL (0.0-0.7); EOSINOPHILS % (AUTO) 3.1 %; HCT - HEMATOCRIT 38.4 % (42.0-52.0); HGB - HEMOGLOBIN 12.9 g/dL (14.0-18.0); LYMPHOCYTES # (AUTO) 1.7 10^3/uL (1.5-3.5); LYMPHOCYTES % (AUTO) 33.2 %; MEAN CORPUSCULAR HEMOGLOBIN 29.7 pg (27.0-31.0); MEAN CORPUSCULAR HGB CONC 33.6 g/dL (32.0-36.0); MEAN CORPUSCULAR VOLUME 88.5 fL (80.0-94.0); MEAN PLATELET VOLUME 8.9 fL (7.4-11.4); MONOCYTES # (AUTO) 0.5 10^3/uL (0.0-1.0); NEUTROPHILS # (AUTO) 2.7 10^3/uL (1.5-6.6); NEUTROPHILS % (AUTO) 52.1 %; PLT - PLATELET COUNT 302 10^3/uL (130-450); RED BLOOD COUNT 4.34 10^6/uL (4.70-6.10); RED CELL DISTRIBUTION WIDTH 12.7 % (12.0-15.0); WHITE BLOOD COUNT 5.1 x10^3/uL (4.8-10.8)
[2020-10-14 18:06] LABS: ALBUMIN 4.4 g/dL (3.2-5.5); ALBUMIN/GLOBULIN RATIO 1.4 (1.0-2.2); BILIRUBIN,TOTAL 1.3 mg/dL (0.2-1.0); CALCIUM 9.2 mg/dL (8.5-10.3); CREATININE 0.7 mg/dL (0.6-1.2); POTASSIUM 3.7 mmol/L (3.5-5.0); TOTAL PROTEIN 7.6 g/dL (6.7-8.2)
--- NOTE | 2020-10-14 18:07 | ED Physician Documentation ---
History of Present Illness - Stated complaint Stated Complaint: SOA - Chief complaint Chief Complaint: Resp - History obtained from History obtained from: Patient - History of Present Illness Pain level max: 0 Pain level now: 0 - Additonal information Additional information: Patient is a 65-year-old male who states he has been having difficulty breathing for the past several weeks. States that he was diagnosed with congestive heart failure about 5 weeks ago, but did not start taking his diuretics until last night. He also states he has a long smoking history, uses albuterol occasionally but does not feel like this is helping. No fevers. No chills. States the swelling in his legs has improved significantly. No chest pain. No Covid exposure that he is aware of. No abdominal pain. No headache. Review of Systems Ten Systems: 10 systems reviewed and negative Constitutional: denies: Fever, Chills Nose: denies: Rhinorrhea / runny nose, Congestion Throat: denies: Sore throat Cardiac: denies: Chest pain / pressure, Palpitations Respiratory: reports: Dyspnea, Wheezing. denies: Cough, Hemoptysis GI: denies: Abdominal Pain, Nausea, Vomiting, Diarrhea : denies: Dysuria Skin: denies: Rash Musculoskeletal: denies: Neck pain, Back pain Neurologic: denies: Headache PD PAST MEDICAL HISTORY - Past Medical History Cardiovascular: Hypertension, High cholesterol Respiratory: COPD Endocrine/Autoimmune: None GI: GERD, Colon polyps, Diverticulitis : None HEENT: Chronic hearing loss, Other Psych: Depression, Anxiety, Panic attacks Musculoskeletal: Osteoarthritis, Chronic back pain Derm: Psoriasis, Other - Past Surgical History Past Surgical History: Yes Ortho: Hip replacement, Knee replacement, Shoulder arthroplasty, Other - Present Medications Home Medications: Ambulatory Orders Medication Instructions Recorded Confirmed HYDROcodone/ACET 10/325 [[place] 10 1 tab PO DAILY 11/07/15 10/14/20 mg/325 mg] Metformin HCl [Metformin ER 1,000 mg PO BID 09/12/20 10/14/20 Gastric] Albuterol Sulfate [Proair 1 puffs INH DAILY 10/14/20 10/14/20 Digihaler] Atorvastatin [Lipitor] 10 mg PO DAILY 10/14/20 10/14/20 Furosemide [Lasix] 20 mg PO DAILY 10/14/20 10/14/20 Gabapentin [Neurontin] 300 mg PO DAILY 10/14/20 10/14/20 Indomethacin [Indocin] 50 mg PO DAILY 10/14/20 10/14/20 Losartan Potassium 25 mg PO DAILY 10/14/20 10/14/20 Meloxicam [Mobic] 15 mg PO DAILY 10/14/20 10/14/20 Metoprolol Succinate [Toprol Xl] 25 mg PO DAILY 10/14/20 10/14/20 Morphine Sulfate ER [Ms Contin] 30 mg PO DAILY 10/14/20 10/14/20 Pantoprazole [Protonix] 40 mg PO DAILY 10/14/20 10/14/20 Spironolactone [Aldactone] 25 mg PO DAILY 10/14/20 10/14/20 predniSONE [Deltasone] 10 mg PO [id number] #42 tab 10/14/20 - Allergies Allergies/Adverse Reactions: Allergies Allergy/AdvReac Type Severity Reaction Status Date / Time No Known Drug Allergies Allergy Verified 10/14/20 17:34 - Social History Does the pt smoke?: Yes Smoking Status: Current every day smoker Does the pt drink ETOH?: No Does the pt have substance abuse?: No - Immunizations Immunizations are current?: Yes - POLST Patient has POLST: No PD ED PE NORMAL - Vitals Vital signs reviewed: Yes - General General: Alert and oriented X 3, No acute distress - HEENT HEENT: Moist mucous membranes - Neck Neck: Supple, no meningeal sign - Cardiac Cardiac: RRR - Respiratory Respiratory: No respiratory distress, Other (Diminished breath sounds and wheezing bilaterally) - Abdomen Abdomen: Soft, Non tender, Non distended - Derm Derm: Warm and dry - Extremities Extremities: No calf tenderness / cord, Other (Minimal edema bilaterally.) - Neuro Neuro: Alert and oriented X 3 - Psych Psych: Normal mood, Normal affect Results - Vitals Vitals: Vital Signs - 24 hr 10/14/20 10/14/20 10/14/20 17:34 19:00 19:50 Temperature 36.5 C 36.6 C Heart Rate 103 H 111 H 99 Respiratory 22 20 21 Rate Blood Pressure 114/93 H 135/99 H O2 Saturation 93 93 Oxygen O2 Source Room air - EKG (time done) 1744 Rate: Rate (enter#) (104) Rhythm: Sinus tachycardia [place]: Normal Intervals: Normal [place] QRS: Normal Ischemia: Normal ST segments - Labs Labs: Laboratory Tests 10/14/20 10/14/20 10/14/20 17:44 17:44 17:44 WBC 5.1 RBC 4.34 L Hgb 12.9 L Hct 38.4 L MCV 88.5 MCH 29.7 MCHC 33.6 RDW 12.7 Plt Count 302 MPV 8.9 Neut # (Auto) 2.7 Lymph # (Auto) 1.7 [place] # (Auto) 0.5 Eos # (Auto) 0.2 Baso # (Auto) 0.1 Absolute Nucleated RBC 0.00 Nucleated RBC % 0.0 Sodium 136 Potassium 3.7 Chloride 96 L Carbon Dioxide 28 Anion Gap 12.0 BUN 11 Creatinine 0.7 Estimated GFR (MDRD) 114 Glucose 185 H Calcium 9.2 Total Bilirubin 1.3 H AST 30 ALT 24 Alkaline Phosphatase 77 Troponin I High Sens 7.4 B-Natriuretic Peptide Total Protein 7.6 Albumin 4.4 Globulin 3.2 Albumin/Globulin Ratio 1.4 Lipase 16 L 10/14/20 17:44 WBC RBC Hgb Hct MCV MCH MCHC RDW Plt Count MPV Neut # (Auto) Lymph # (Auto) [place] # (Auto) Eos # (Auto) Baso # (Auto) Absolute Nucleated RBC Nucleated RBC % Sodium Potassium Chloride Carbon Dioxide Anion Gap BUN Creatinine Estimated GFR (MDRD) Glucose Calcium Total Bilirubin AST ALT Alkaline Phosphatase Troponin I High Sens B-Natriuretic Peptide 32 Total Protein Albumin Globulin Albumin/Globulin Ratio Lipase - Rads (name of study) Chest x-ray Radiology: Prelim report reviewed, EMP read contemporaneously, See rad report PD MEDICAL DECISION MAKING - ED course Complexity details: reviewed results, re-evaluated patient, considered differential, d/w patient ED course: 65-year-old male with what is likely COPD and CHF. His BNP is low, possible increased vascularity suggestive of edema on chest x-ray. He only started the diuretics last night, so we will have him continue this at home. Feels much better after steroids and breathing treatments. Likely this is more related to COPD. No indication for antibiotics at this time. Patient is well-appearing, nontoxic. Afebrile. No respiratory distress. No hypoxia. Patient counseled regarding signs and symptoms for which I believe and urgent re-evaluation would be necessary. Patient with good understanding of and agreement to plan and is comfortable going home at this time This document was made in part using voice recognition software. While efforts are made to proofread this document, sound alike and grammatical errors may occur. IMPRESSION: 1. Increased vascularity suggestive of edema. 2. Blunting of the right costophrenic angle suggestive trace effusion, without appreciable change. 3. Right basilar opacity slightly decreased compared to prior exam. This can represent focal edema. Other etiologies such as atelectasis and/or developing pneumonia cannot be excluded. Departure - Departure Disposition: 01 Home, Self Care Clinical Impression: COPD exacerbation Condition: Good Instructions: ED COPD Flare Follow-Up: Dimitrios Le DO [Primary Care Provider] - Prescriptions: predniSONE [Deltasone] 10 mg PO [id number] #42 tab Comments: Use your albuterol at home with the spacer we provided you tonight, you can use this up to every 4 hours. Use the steroids as prescribed as well. Continue your Lasix as previously prescribed. Follow-up with your doctor in 3 to 4 days for a recheck. Return if you worsen. Discharge Date/Time: 10/14/20 19:50
--- NOTE | 2020-10-14 18:09 | XRAY Report ---
PROCEDURE: Chest 1 View X-Ray INDICATIONS: Chest Pain TECHNIQUE: One view of the chest was acquired. COMPARISON: Chest x-ray 09/21/2020 FINDINGS: Surgical changes and devices: None. Lungs and pleura: There is persistent appearance of right hemidiaphragm elevation. There is blunting of the right costophrenic angle with right basilar opacity, although opacity has mildly decreased com pared to prior exam. Mediastinum: Mediastinal contours appear normal. Heart size is normal. Bones and chest wall: No suspicious bony lesions. Overlying soft tissues appear unremarkable. IMPRESSION: 1. Increased vascularity suggestive of edema. 2. Blunting of the right costophrenic angle suggestive trace effusion, without appreciable change. 3. Right basilar opacity slightly decreased compared to prior exam. This can represent focal edema. O ther etiologies such as atelectasis and/or developing pneumonia cannot be excluded. Reviewed by: Leonela Shah MD on 10/14/2020 6:07 PM PDT Approved by: Leonela Shah MD on 10/14/2020 6:07 PM PDT Station ID: [id number]
[2020-10-14] MEDS ORDERED: ALBUTEROL 1 PUFF INH STA (18:37)
[2020-10-14] MEDS ORDERED: predniSONE 20 MG TABLET PO STA (19:41)
[2020-10-14 19:51] VITALS: BP 135/99
== END 2020-10-14 19:50 | disposition home or self-care (01) ==
LOC: ED 17:30
DX: J44.1 Chronic obstructive pulmonary disease with (acute) exacerbation (principal); F17.200 Nicotine dependence, unspecified, uncomplicated
CPT/HCPCS: 36415; 71045; 80053; 83690; 83880; 84484; 85025; 93005; 94640; 94664; 99284; J7512

== ENCOUNTER 2020-11-06 14:57 | Emergency (ER) | payer MEDICARE ==
--- OUTSIDE RECORDS SUMMARY | 2020-11-06 15:00 | EXTERNAL MEDICAL SUMMARY RPT | Continuity of Care Document ---
:1955 Demographics Phone Unavailable Preferred Language Kazakh Marital Status Unknown Tenriism Affiliation Unknown Race Unknown Ethnic Group Unknown Author Organization [place] Address [address] [place] [address] Phone Care Team Providers Name Role Phone Lemme Unavailable Unavailable Problems date description facility [id number] Other cardiomyopathies [facility] [id number] Dyspnea, unspecified [facility]
--- OUTSIDE RECORDS SUMMARY | 2020-11-06 15:02 | EXTERNAL MEDICAL SUMMARY RPT | Continuity of Care Document ---
:1955 Demographics Phone Unavailable Preferred Language Gabonese Marital Status Unknown Buddhism Affiliation Unknown Race Unknown Ethnic Group Unknown Author Organization [place] Address [address] [place] [address] Phone Care Team Providers Name Role Phone Lemme Unavailable Unavailable Problems date description facility [id number] Other cardiomyopathies [facility] [id number] Dyspnea, unspecified [facility]
--- NOTE | 2020-11-06 15:36 | ED Physician Documentation ---
PD HPI FOCAL NEURO - Stated complaint Stated Complaint: SENT BY - Chief complaint Chief Complaint: Neuro - History obtained from History obtained from: Patient, Family - Additional information Additional information: 65-year-old gentleman presents accompanied by his after being referred from the clinic for altered mental status. He was seen here in August, he was acting confused and there was a concern for hydrocodone overdose. He was sent to have a troponin of nearly 1600 and evidence of CHF as well as acute renal failure with a creatinine of 3.8. He was referred to [facility] where reportedly had clean coronaries. Seen a couple of more times since then for CHF and seems to be stabilized from that juncture. Went to bed last night and mostly normal condition, went to work with him still sleeping at 830 this morning. She got home around 1 PM and found the house to be kind of overturned and he was acting funny. He denies alcohol or drug use. Review of Systems Ten Systems: 10 systems reviewed and negative Constitutional: reports: Reviewed and negative Eyes: reports: Reviewed and negative Ears: reports: Reviewed and negative Nose: reports: Reviewed and negative PD PAST MEDICAL HISTORY - Past Medical History Cardiovascular: Hypertension, High cholesterol Respiratory: COPD Endocrine/Autoimmune: None GI: GERD, Colon polyps, Diverticulitis : None HEENT: Chronic hearing loss, Other Psych: Depression, Anxiety, Panic attacks Musculoskeletal: Osteoarthritis, Chronic back pain Derm: Psoriasis, Other - Past Surgical History Past Surgical History: Yes Ortho: Hip replacement, Knee replacement, Shoulder arthroplasty, Other - Present Medications Home Medications: Ambulatory Orders Medication Instructions Recorded Confirmed HYDROcodone/ACET 10/325 [[place] 10 1 tab PO DAILY 11/07/15 10/14/20 mg/325 mg] Metformin HCl [Metformin ER 1,000 mg PO BID 09/12/20 10/14/20 Gastric] Albuterol Sulfate [Proair 1 puffs INH DAILY 10/14/20 10/14/20 Digihaler] Atorvastatin [Lipitor] 10 mg PO DAILY 10/14/20 10/14/20 Furosemide [Lasix] 20 mg PO DAILY 10/14/20 10/14/20 Gabapentin [Neurontin] 300 mg PO DAILY 10/14/20 10/14/20 Indomethacin [Indocin] 50 mg PO DAILY 10/14/20 10/14/20 Losartan Potassium 25 mg PO DAILY 10/14/20 10/14/20 Metoprolol Succinate [Toprol Xl] 25 mg PO DAILY 10/14/20 10/14/20 Morphine Sulfate ER [Ms Contin] 30 mg PO DAILY 10/14/20 10/14/20 Spironolactone [Aldactone] 25 mg PO DAILY 10/14/20 10/14/20 - Allergies Allergies/Adverse Reactions: Allergies Allergy/AdvReac Type Severity Reaction Status Date / Time No Known Drug Allergies Allergy Verified 11/06/20 15:19 - Social History Does the pt smoke?: Yes Smoking Status: Current every day smoker Does the pt drink ETOH?: No Does the pt have substance abuse?: No - Immunizations Immunizations are current?: Yes - POLST Patient has POLST: No PD ED PE NORMAL - Vitals Vital signs reviewed: Yes - General General: Alert and oriented X 3, Other (Very mild Confused although technically oriented x3) - HEENT HEENT: PERRL, EOMI - Neck Neck: Supple, no meningeal sign, No bony TTP - Cardiac Cardiac: RRR, No murmur - Respiratory Respiratory: No respiratory distress, Clear bilaterally - Abdomen Abdomen: Non tender - Back Back: No CVA TTP, No spinal TTP - Derm Derm: Normal color, Warm and dry - Extremities Extremities: Other (Minimal pitting pedal edema) - Neuro Neuro: Alert and oriented X 3, No motor deficit, No sensory deficit, Other (Potentially very mild asterixis; Normal gait) Eye Opening: Spontaneous Motor: Obeys Commands Verbal: Oriented GCS Score: 15 Results - Vitals Vitals: Vital Signs - 24 hr 11/06/20 15:12 Heart Rate 94 Respiratory 14 Rate Blood Pressure 110/60 O2 Saturation 92 Oxygen O2 Source Room air - EKG (time done) 1519 Rate: Rate (enter#) (94) Rhythm: NSR (With PVCs) [place]: Normal Intervals: Normal [place] QRS: Normal Ischemia: Normal ST segments - Labs Labs: Laboratory Tests 11/06/20 11/06/20 11/06/20 15:41 15:41 15:41 WBC 6.7 RBC 3.72 L Hgb 11.2 L Hct 33.4 L MCV 89.8 MCH 30.1 MCHC 33.5 RDW 12.6 Plt Count 261 MPV 9.0 Neut # (Auto) 4.1 Lymph # (Auto) 1.7 [place] # (Auto) 0.6 Eos # (Auto) 0.2 Baso # (Auto) 0.1 Absolute Nucleated RBC 0.00 Nucleated RBC % 0.0 Sodium 134 L Potassium 4.7 Chloride 96 L Carbon Dioxide 27 Anion Gap 11.0 BUN 34 H Creatinine 1.3 H Estimated GFR (MDRD) 56 L Glucose 133 H Calcium 9.1 Total Bilirubin 1.3 H AST 17 ALT 16 Alkaline Phosphatase 81 Ammonia Total Protein 6.9 Albumin 3.9 Globulin 3.0 Albumin/Globulin Ratio 1.3 Lipase 15 L TSH 0.21 L Urine Color Urine Clarity Urine pH Ur Specific [place] Urine Protein Urine Glucose (UA) Urine Ketones Urine Occult Blood Urine Nitrite Urine Bilirubin Urine Urobilinogen Ur Leukocyte Esterase Ur Microscopic Review Urine Culture Comments Salicylates < 6.0 Urine Opiates Screen Ur Oxycodone Screen Urine Methadone Screen Ur Propoxyphene Screen Acetaminophen < 10 L Ur Barbiturates Screen Ur Tricyclics Screen Ur Phencyclidine Scrn Ur Amphetamine Screen U Methamphetamines Scrn U Benzodiazepines Scrn Urine Cocaine Screen U Cannabinoids Screen Ethyl Alcohol < 5.0 11/06/20 11/06/20 15:41 17:30 WBC RBC Hgb Hct MCV MCH MCHC RDW Plt Count MPV Neut # (Auto) Lymph # (Auto) [place] # (Auto) Eos # (Auto) Baso # (Auto) Absolute Nucleated RBC Nucleated RBC % Sodium Potassium Chloride Carbon Dioxide Anion Gap BUN Creatinine Estimated GFR (MDRD) Glucose Calcium Total Bilirubin AST ALT Alkaline Phosphatase Ammonia 23.0 Total Protein Albumin Globulin Albumin/Globulin Ratio Lipase TSH Urine Color YELLOW Urine Clarity CLEAR Urine pH 5.0 Ur Specific [place] 1.020 Urine Protein NEGATIVE Urine Glucose (UA) NEGATIVE Urine Ketones NEGATIVE Urine Occult Blood NEGATIVE Urine Nitrite NEGATIVE Urine Bilirubin NEGATIVE Urine Urobilinogen 0.2 (NORMAL) Ur Leukocyte Esterase NEGATIVE Ur Microscopic Review NOT INDICATED Urine Culture Comments NOT INDICATED Salicylates Urine Opiates Screen POSITIVE H Ur Oxycodone Screen NEGATIVE Urine Methadone Screen NEGATIVE Ur Propoxyphene Screen NEGATIVE Acetaminophen Ur Barbiturates Screen NEGATIVE Ur Tricyclics Screen NEGATIVE Ur Phencyclidine Scrn NEGATIVE Ur Amphetamine Screen NEGATIVE U Methamphetamines Scrn NEGATIVE U Benzodiazepines Scrn NEGATIVE Urine Cocaine Screen NEGATIVE U Cannabinoids Screen NEGATIVE Ethyl Alcohol PD MEDICAL DECISION MAKING - ED course ED course: 65-year-old gentleman presents for reported altered mental status although does not seem altered here. Only pertinent positive findings were a head CT, interpreted contemporaneously by me which was unremarkable. Labs basically at his baseline although he does have new potential mild hypothyroidism but this does not explain today's presentation. He has opiates in the urine but denies taking them inappropriately. comfortable taking him home. Departure - Departure Disposition: Home, Self Care Clinical Impression: Altered mental status Qualifiers: Altered mental status type: delirium Qualified Code(s): R41.0 - Disorientation, unspecified Condition: Stable Record reviewed to determine appropriate education?: Yes Instructions: ED Confusion Comments: Today to be mildly hypothyroid. This does not explain today's issues. Please follow-up with your primary care physician for reevaluation of this. Return if worse in any way. Follow-up with your primary care physician, next available appointment.
[2020-11-06 15:46] LABS: BASOPHILS # (AUTO) 0.1 10^3/uL (0.0-0.1); BASOPHILS % (AUTO) 0.8 %; EOSINOPHILS # (AUTO) 0.2 10^3/uL (0.0-0.7); EOSINOPHILS % (AUTO) 2.6 %; HCT - HEMATOCRIT 33.4 % (42.0-52.0); HGB - HEMOGLOBIN 11.2 g/dL (14.0-18.0); LYMPHOCYTES # (AUTO) 1.7 10^3/uL (1.5-3.5); LYMPHOCYTES % (AUTO) 25.1 %; MEAN CORPUSCULAR HEMOGLOBIN 30.1 pg (27.0-31.0); MEAN CORPUSCULAR HGB CONC 33.5 g/dL (32.0-36.0); MEAN CORPUSCULAR VOLUME 89.8 fL (80.0-94.0); MONOCYTES # (AUTO) 0.6 10^3/uL (0.0-1.0); MONOCYTES % (AUTO) 9.3 %; NEUTROPHILS # (AUTO) 4.1 10^3/uL (1.5-6.6); PLT - PLATELET COUNT 261 10^3/uL (130-450); RED BLOOD COUNT 3.72 10^6/uL (4.70-6.10); RED CELL DISTRIBUTION WIDTH 12.6 % (12.0-15.0); WHITE BLOOD COUNT 6.7 x10^3/uL (4.8-10.8)
[2020-11-06 16:01] LABS: ALBUMIN 3.9 g/dL (3.2-5.5); ALKALINE PHOSPHATASE 81 IU/L (42-121); ALT ALANINE AMINOTRANSFERASE 16 IU/L (10-60); AST ASPARTATE AMINOTRANSFERASE 17 IU/L (10-42); BILIRUBIN,TOTAL 1.3 mg/dL (0.2-1.0); BUN - BLOOD UREA NITROGEN 34 mg/dL (6-20); CALCIUM 9.1 mg/dL (8.5-10.3); CARBON DIOXIDE - CO2 27 mmol/L (21-32); CHLORIDE 96 mmol/L (101-111); CREATININE 1.3 mg/dL (0.6-1.2); GFR - MDRD 56 (>89); GLUCOSE 133 mg/dL (70-100); POTASSIUM 4.7 mmol/L (3.5-5.0); SODIUM 134 mmol/L (135-145); TOTAL PROTEIN 6.9 g/dL (6.7-8.2)
[2020-11-06 16:02] LABS: ACETAMINOPHEN < 10 ug/mL (10-30); ALBUMIN/GLOBULIN RATIO 1.3 (1.0-2.2); ETOH - ETHANOL < 5.0 mg/dL; LIPASE 15 U/L (22-51); SALICYLATE < 6.0 mg/dL
--- NOTE | 2020-11-06 16:23 | CT Report ---
PROCEDURE: HEAD WO INDICATIONS: confusion TECHNIQUE: Noncontrast 4.5 mm thick angled axial sections acquired from the foramen magnum to the vertex. For r adiation dose reduction, the following was used: automated exposure control, adjustment of mA and/or kV according to patient size. COMPARISON: None. FINDINGS: Image quality: Excellent. CSF spaces: Basal cisterns are patent. No extra-axial fluid collections. Ventricles are normal in size and shape. Brain: No midline shift. No intracranial masses or hemorrhage. Michael-white matter interface is norm al. Skull and face: Calvarium and visualized facial bones are intact, without suspicious lesions. Sinuses: Visualized sinuses and mastoids are clear. IMPRESSION: No CT evidence of acute intracranial pathology. Reviewed by: Nikhil Alford MD on 11/06/2020 4:21 PM PDT Approved by: Nikhil Alford MD on 11/06/2020 4:21 PM PDT Station ID: [id number]
[2020-11-06 17:35] LABS: MUDS CUTOFF CONCENTRATIONS CUTOFF CONC BELOW:
[2020-11-06 17:43] LABS: BILIRUBIN,URINE NEGATIVE (NEGATIVE); GLUCOSE, URINE (UA) NEGATIVE (NEGATIVE); KETONES,URINE (UA) NEGATIVE (NEGATIVE); LEUKOCYTE ESTERASE, URINE NEGATIVE (NEGATIVE); NITRITE,URINE NEGATIVE (NEGATIVE); OCCULT BLOOD,URINE NEGATIVE (NEGATIVE); PROTEIN,URINE NEGATIVE (NEGATIVE); UROBILINOGEN,URINE 0.2 (NORMAL) E.U./dL (NORMAL)
[2020-11-06 17:44] LABS: CLARITY,URINE CLEAR (CLEAR)
[2020-11-06 17:54] LABS: COCAINE SCREEN URINE NEGATIVE (NEGATIVE); METHAMPHETAMINES SCREEN, URINE NEGATIVE (NEGATIVE); OPIATE SCREEN, URINE POSITIVE (NEGATIVE); THC CANNABINOID SCREEN, URINE NEGATIVE (NEGATIVE)
[2020-11-06 17:55] LABS: AMPHETAMINE SCREEN,URINE NEGATIVE (NEGATIVE); BARBITURATE SCREEN,UR NEGATIVE (NEGATIVE); BENZODIAZEPINES SCREEN, URINE NEGATIVE (NEGATIVE); METHADONE SCREEN, URINE NEGATIVE (NEGATIVE); OXYCODONE SCREEN, URINE NEGATIVE (NEGATIVE); PROPOXYPHENE SCREEN, URINE NEGATIVE (NEGATIVE); TRICYCLIC ANTIDEPRESSANT,URINE NEGATIVE (NEGATIVE)
[2020-11-06 19:48] VITALS: BP 109/69
== END 2020-11-06 18:40 | disposition home or self-care (01) ==
LOC: ED 14:57
DX: R41.82 Altered mental status, unspecified (principal); I10 Essential (primary) hypertension; F17.200 Nicotine dependence, unspecified, uncomplicated
CPT/HCPCS: 36415; 70450; 80053; 80306; 80307; 81003; 82140; 83690; 84443; 85025; 93005; 99283; 99284; G0480; 80320; 80329; 81001; 87086

== ENCOUNTER 2020-11-23 18:57 | Emergency (ER) | payer MEDICARE ==
--- OUTSIDE RECORDS SUMMARY | 2020-11-23 19:01 | EXTERNAL MEDICAL SUMMARY RPT | Continuity of Care Document ---
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 [id number] Dyspnea, unspecified [facility] Results
--- OUTSIDE RECORDS SUMMARY | 2020-11-23 19:08 | EXTERNAL MEDICAL SUMMARY RPT | Continuity of Care Document ---
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 [id number] Dyspnea, unspecified [facility] Results
--- NOTE | 2020-11-23 20:16 | XRAY Report ---
PROCEDURE: Ankle 3 View RT INDICATIONS: fall 3 days ago, continued pain TECHNIQUE: 3 views of the ankle were acquired. COMPARISON: None. FINDINGS: Bones: No fractures or dislocations. Ankle mortise is normally aligned. No suspicious bony lesions . Soft tissues: A tibiotalar joint effusion is present. Achilles tendon appears normal. IMPRESSION: No acute osseous abnormality. Reviewed by: Julian Taylor MD on 11/23/2020 8:14 PM PDT Approved by: Julian Taylor MD on 11/23/2020 8:14 PM PDT Station ID: [id number]
--- NOTE | 2020-11-23 20:17 | XRAY Report ---
PROCEDURE: Hand 3 View RT INDICATIONS: fall 3 days ago, continued pain TECHNIQUE: 3 views of the hand(s) acquired. COMPARISON: None. FINDINGS: Bones: No fractures or dislocations. No suspicious bony lesions. Extensive degenerative change most pronounced at the first CMC joint. Soft tissues: No suspicious soft tissue calcifications. IMPRESSION: No fracture identified. Consider follow-up radiographs in 10-14 days. Reviewed by: Julian Taylor MD on 11/23/2020 8:16 PM PDT Approved by: Julian Taylor MD on 11/23/2020 8:16 PM PDT Station ID: [id number]
--- NOTE | 2020-11-23 20:33 | XRAY Report ---
PROCEDURE: Shoulder 3 View RT INDICATIONS: fall 3 days ago, continued pain TECHNIQUE: 3 views of the shoulder were acquired. COMPARISON: 09/04/2020. FINDINGS: Bones: No acute fractures or dislocations. Hill-Sachs deformity. No suspicious bony lesions. Visual ized ribs appear intact. Glenoid anchors likely due to bony [place] lesion repair. Moderate degenerat janina change. Soft tissues: No suspicious soft tissue calcifications. IMPRESSION: No acute osseous abnormality. If clinically indicated consider follow-up MRI. Reviewed by: Julian Taylor MD on 11/23/2020 8:32 PM PDT Approved by: Julian Taylor MD on 11/23/2020 8:32 PM PDT Station ID: [id number]
--- NOTE | 2020-11-23 20:44 | ED Physician Documentation ---
History of Present Illness - Stated complaint Stated Complaint: FALL, RIGHT SIDE INJURIES - Chief complaint Chief Complaint: Trauma Ext - History obtained from History obtained from: Patient - History of Present Illness Timing: How many days ago (3) Pain level max: 6 Pain level now: 6 - Additonal information Additional information: Patient is a 65-year-old male who presents to the emergency department after a fall 3 days ago. He is complaining of pain to the right thumb, right shoulder and right ankle. Worse with movement, better with rest. No head injury. No loss of consciousness. No neck or back pain. No numbness or tingling. Review of Systems Ten Systems: 10 systems reviewed and negative Constitutional: denies: Fever, Chills Nose: denies: Rhinorrhea / runny nose, Congestion Respiratory: denies: Cough GI: denies: Vomiting, Diarrhea Skin: denies: Rash Musculoskeletal: denies: Neck pain, Back pain Neurologic: denies: Focal weakness, Numbness, Seizure, Confused, Headache, LOC PD PAST MEDICAL HISTORY - Past Medical History Cardiovascular: Hypertension, High cholesterol Respiratory: COPD Neuro: CVA Endocrine/Autoimmune: None GI: GERD, Colon polyps, Diverticulitis : None HEENT: Chronic hearing loss, Other Psych: Depression, Anxiety, Panic attacks Musculoskeletal: Osteoarthritis, Chronic back pain Derm: Psoriasis, Other - Past Surgical History Past Surgical History: Yes Ortho: Hip replacement, Knee replacement, Shoulder arthroplasty, Other - Present Medications Home Medications: Ambulatory Orders Medication Instructions Recorded Confirmed HYDROcodone/ACET 10/325 [[place] 10 1 tab PO DAILY 11/07/15 10/14/20 mg/325 mg] Metformin HCl [Metformin ER 1,000 mg PO BID 09/12/20 10/14/20 Gastric] Albuterol Sulfate [Proair 1 puffs INH DAILY 10/14/20 10/14/20 Digihaler] Atorvastatin [Lipitor] 10 mg PO DAILY 10/14/20 10/14/20 Furosemide [Lasix] 20 mg PO DAILY 10/14/20 10/14/20 Gabapentin [Neurontin] 300 mg PO DAILY 10/14/20 10/14/20 Indomethacin [Indocin] 50 mg PO DAILY 10/14/20 10/14/20 Losartan Potassium 25 mg PO DAILY 10/14/20 10/14/20 Metoprolol Succinate [Toprol Xl] 25 mg PO DAILY 10/14/20 10/14/20 Morphine Sulfate ER [Ms Contin] 30 mg PO DAILY 10/14/20 10/14/20 Spironolactone [Aldactone] 25 mg PO DAILY 10/14/20 10/14/20 - Allergies Allergies/Adverse Reactions: Allergies Allergy/AdvReac Type Severity Reaction Status Date / Time No Known Drug Allergies Allergy Verified 11/23/20 19:10 - Social History Does the pt smoke?: Yes Smoking Status: Current every day smoker Does the pt drink ETOH?: No Does the pt have substance abuse?: No - Immunizations Immunizations are current?: Yes - POLST Patient has POLST: No PD ED PE NORMAL - Vitals Vital signs reviewed: Yes - General General: Alert and oriented X 3, No acute distress, Well developed/nourished - HEENT HEENT: Moist mucous membranes - Neck Neck: Supple, no meningeal sign - Cardiac Cardiac: RRR, Strong equal pulses - Respiratory Respiratory: No respiratory distress, Clear bilaterally - Abdomen Abdomen: Soft, Non tender, Non distended - Derm Derm: Warm and dry - Extremities Extremities: Other - Neuro Neuro: Alert and oriented X 3 - Psych Psych: Normal mood, Normal affect - Free text exam Free text exam: Mild diffuse tenderness about the right shoulder, generally. Full range of motion present. Neurovascular intact including the axillary nerve. No gross deformity. Also tender over the proximal phalanx of the right thumb. No snuffbox tenderness. Neurovascularly intact. No tenderness over the remainder of the hand, wrist, forearm and elbow. Tenderness to palpation over the right lateral malleolus of the ankle. Mild swelling. No deformity. Otherwise normal examination of the right lower extremity including ankle, foot, proximal tibia and fibula. Results - Vitals Vitals: Vital Signs - 24 hr 11/23/20 11/23/20 19:05 21:10 Temperature 36.3 C L 36.8 C Heart Rate 84 92 Respiratory 16 16 Rate Blood Pressure 141/78 H 104/62 O2 Saturation 99 98 Oxygen O2 Source Room air - Rads (name of study) R shoulder xray Radiology: Prelim report reviewed, EMP read contemporaneously, See rad report (No acute osseous abnormality. ) R hand xray Radiology: Prelim report reviewed, EMP read contemporaneously, See rad report (No acute osseous abnormality. ) R ankle xray Radiology: Prelim report reviewed, EMP read contemporaneously, See rad report (No acute osseous abnormality. ) PD MEDICAL DECISION MAKING - ED course Complexity details: reviewed results, re-evaluated patient, considered differential, d/w patient, d/w family ED course: No acute findings on x-ray. Patient has morphine and oxycodone for pain at home. Placed in a Velcro thumb spica for comfort of the right thumb. Using the right arm and shoulder freely, will not sling this at this time. Also placed in a gel splint for the right ankle. Patient is using a cane in his left hand to ambulate. No other acute injuries at this time. Patient counseled regarding signs and symptoms for which I believe and urgent re-evaluation would be necessary. Patient with good understanding of and agreement to plan and is comfortable going home at this time This document was made in part using voice recognition software. While efforts are made to proofread this document, sound alike and grammatical errors may occur. Departure - Departure Disposition: 01 Home, Self Care Clinical Impression: Right ankle sprain Qualifiers: Encounter type: initial encounter Involved ligament of ankle: unspecified ligament Qualified Code(s): S93.401A - Sprain of unspecified ligament of right ankle, initial encounter Sprain of right thumb Qualifiers: Encounter type: initial encounter Sprain of finger site: unspecified site Qualified Code(s): S63.601A - Unspecified sprain of right thumb, initial encounter Condition: Good Instructions: ED Sprain Finger, ED Sprain Ankle Follow-Up: Dimitrios Le DO [Primary Care Provider] - Within 1 week Comments: You can wear the braces at home to help with any discomfort. Continue your current medications at home. Follow-up with your doctor for further care. Your x-rays do not show any acute abnormalities today. Discharge Date/Time: 11/23/20 21:15
[2020-11-23] MEDS ORDERED: KETOROLAC 60 MG/2 ML VIAL IM STA (20:52)
[2020-11-23] MEDS ORDERED: HYDROcod/ACETAM 5/325 MG TABLET PO STA (20:52)
[2020-11-23 21:22] VITALS: BP 104/62
== END 2020-11-23 21:15 | disposition home or self-care (01) ==
LOC: ED 18:57
DX: S93.401A Sprain of unspecified ligament of right ankle, initial encounter (principal); S63.601A Unspecified sprain of right thumb, initial encounter; W10.9XXA Fall (on) (from) unspecified stairs and steps, initial encounter; I10 Essential (primary) hypertension; F17.200 Nicotine dependence, unspecified, uncomplicated
CPT/HCPCS: 29515; 73030; 73130; 73610; 96372; 99284; A9270

== ENCOUNTER 2020-12-10 12:01 | Outpatient (CLI) | payer MEDICARE ==
[2020-12-10] MEDS ORDERED: IOVERSOL 320 100 ML VIAL IVP ONE ×2 (12:10→15:26)
--- NOTE | 2020-12-10 15:38 | CT Report ---
PROCEDURE: ANGIO HEAD W/WO INDICATIONS: CEREBELLAR STROKE CONTRAST: IV CONTRAST: Optiray 320 ml: 80 PO CONTRAST: *NO PO CONTRAST TECHNIQUE: Precontrast 4.5 mm thick angled axial sections acquired from the foramen magnum to the vertex. Afte r the administration of intravenous contrast, 1 mm thick sections acquired through the [place] of [place] is. Postcontrast 4.5 mm thick sections then re-acquired from the foramen magnum to the vertex. 3-di mensional mwwhvqq-xyiqgquyl-ekfzhqoczd (MIP) and/or volume rendering reformats were acquired of the c entral intracranial vasculature. For radiation dose reduction, the following was used: automated ex posure control, adjustment of mA and/or kV according to patient size. COMPARISON: Collections. With prior noncontrast head CT, 11/06/2020. Correlation is also made with e accompanying neck CT angiogram 12/20/2020. FINDINGS: Image quality: There is streak artifact seen through the skull base. Motion artifact is noted. Anterior circulation: Intracranial internal carotid arteries are normal in size and flow. The flow within the paired anterior cerebral arteries is normal and symmetric. The flow within the middle cer ebral arteries is normal and symmetric. The anterior communicating artery is seen. No aneurysms are seen. Posterior circulation: Visualized portions of the vertebral arteries demonstrate normal caliber, and join to form a normal appearing basilar artery. Bilateral type origins of the posterior cerebr al arteries can be seen. Flow within the posterior cerebral arteries is normal and symmetric. No ane urysms are seen. CSF spaces: Ventricles are normal in size and shape. Basal cisterns are patent. No extra-axial flu id collections. Brain: No midline shift. No intracranial bleeds or masses. Michael-white matter interface appears int act. Skull and face: Calvarium and facial bones appear intact, without suspicious lesions. Sinuses: Mucous retention cyst can be seen within the maxillary sinuses. Visualized sinuses and mast oids otherwise appear clear. IMPRESSION: Unremarkable brain, without sebastian territorial infarct within the cerebellum. No significant intracranial arterial abnormalities are seen. Incidental note is made of: Bilateral type origins of the posterior cerebral arteries. Reviewed by: Julio Alvarez MD on 12/10/2020 2:36 PM AKDT Approved by: Julio Alvarez MD on 12/10/2020 2:36 PM AKDT Station ID: [id number]
--- NOTE | 2020-12-10 15:41 | CT Report ---
PROCEDURE: ANGIO NECK W INDICATIONS: CEREBELLAR STROKE CONTRAST: IV CONTRAST: Optiray 320 ml: 80 PO CONTRAST: *NO PO CONTRAST TECHNIQUE: After the administration of intravenous contrast, 1.5 mm axial sections acquired from the aortic arch to the [place] of [place]. Coronal 3-D maximum intensity projection (MIP) and/or volume rendering ref ormats were then performed. For radiation dose reduction, the following was used: automated exposur e control, adjustment of mA and/or kV according to patient size. COMPARISON: Correlation is made with the accompanying head CT angiogram, 12/10/2020. FINDINGS: Image quality: Motion artifact is noted. There is streak artifact seen in the shoulders. Carotid system: The great vessels demonstrate a conventional anatomy as they arise from the aortic a rch. The origins of the common carotid arteries appear patent. The common carotid arteries demonstr ate normal calibers and courses. The bifurcation regions appear normal bilaterally. The internal ca rotid arteries demonstrate normal caliber. The internal carotid arteries demonstrate prominent tortu osity. Posterior circulation: The origins of the vertebral arteries are not well seen. The more superior p ortions of the vertebral arteries demonstrate normal course and caliber. They join to form a normal appearing basilar artery. Soft tissues: Visualized neck soft tissues demonstrate no suspicious abnormalities. The thyroid is normal in size and there are no incidental findings. Bones: No suspicious bony lesions. Visualized cervical spine appears normally aligned. Degenerati ve changes are seen throughout. Fusion changes are seen of C3-C4 and C4-C5. Extra convex scoliotic cu rvature is seen. IMPRESSION: No hemodynamically significant stenosis can be seen within the arteries of the neck. Incidental note is made of: Tortuous internal carotid arteries Dextroconvex scoliotic curvature Degenerative and fusion changes The estimate of stenosis included in the report of the imaging study was calculated using the NASCET method Reviewed by: Julio Alvarez MD on 12/10/2020 2:40 PM AKDT Approved by: Julio Alvarez MD on 12/10/2020 2:40 PM AKDT Station ID: [id number]
== END 2020-12-10 12:02 | disposition home or self-care (01) ==
LOC: DI 12:01
PROVIDERS: ATTEND Psychiatry & Neurology Neurology
DX: I63.9 Cerebral infarction, unspecified (principal)
CPT/HCPCS: 70496; 70498; Q9967

== ENCOUNTER 2021-01-31 19:16 | Outpatient (CLI) | payer MEDICARE | END 2021-01-31 23:59 | disposition critical access hospital (66) | LOC: EMS 19:16 | DX: R45.1 Restlessness and agitation (principal) | CPT/HCPCS: A0425; A0429 ==

== ENCOUNTER 2021-01-31 19:44 | Emergency (ER) | payer MEDICARE ==
--- NOTE | 2021-01-31 20:14 | ED Physician Documentation ---
History of Present Illness - Stated complaint Stated Complaint: AGITATION - Chief complaint Chief Complaint: Resp - Additonal information Additional information: 66-year-old male was brought to the emergency department for evaluation of agita tion. History is somewhat limited and is obtained by both EMS as well as the patient and his spouse. The patient has a history of a stroke in August 2020 he has a history of seizures secondary to that. He also had a myocardial infarction at this time. He was seen and treated at [facility] for these disorders. Per the he has not taken his medications for a while because they ran out of money and could not afford to fill them. However the medications were filled on 27 January. It is unclear whether he actually began taking the medications that were filled. Due to the agitation at home EMS was summoned. When they arrived they noted that the patient had oxygen sats of about 84% on room air with diminished breath sounds on the right side. He was placed on 6 L nasal cannula with resultant rise in saturations to the mid 90s. With an improvement in his oxygen saturations much of the agitation seem to dissolve. his reports that for the last 2 days he has been intermittently confused, but has not had any focal neuro deficits Review of Systems Unable to obtain: Confused PD PAST MEDICAL HISTORY - Past Medical History Cardiovascular: Hypertension, High cholesterol Respiratory: COPD Neuro: CVA Endocrine/Autoimmune: None GI: GERD, Colon polyps, Diverticulitis : None HEENT: Chronic hearing loss, Other Psych: Depression, Anxiety, Panic attacks Musculoskeletal: Osteoarthritis, Chronic back pain Derm: Psoriasis, Other - Past Surgical History Past Surgical History: Yes Ortho: Hip replacement, Knee replacement, Shoulder arthroplasty, Other - Present Medications Home Medications: Ambulatory Orders Medication Instructions Recorded Confirmed HYDROcodone/ACET 10/325 [[place] 10 1 tab PO DAILY 11/07/15 01/31/21 mg/325 mg] Metformin HCl [Metformin ER 1,000 mg PO BID 09/12/20 01/31/21 Gastric] Albuterol Sulfate [Proair 1 puffs INH DAILY 10/14/20 01/31/21 Digihaler] Atorvastatin [Lipitor] 10 mg PO DAILY 10/14/20 01/31/21 Furosemide [Lasix] 20 mg PO DAILY 10/14/20 01/31/21 Gabapentin [Neurontin] 300 mg PO DAILY 10/14/20 01/31/21 Indomethacin [Indocin] 50 mg PO DAILY 10/14/20 01/31/21 Losartan Potassium 25 mg PO DAILY 10/14/20 01/31/21 Metoprolol Succinate [Toprol Xl] 25 mg PO DAILY 10/14/20 01/31/21 Morphine Sulfate ER [Ms Contin] 30 mg PO DAILY 10/14/20 01/31/21 Spironolactone [Aldactone] 25 mg PO DAILY 10/14/20 01/31/21 Famotidine [Acid-Pep] 20 mg PO DAILY 01/31/21 01/31/21 Levetiracetam [Keppra] 500 mg PO BID 01/31/21 01/31/21 Meloxicam [Mobic] 15 mg PO DAILY 01/31/21 01/31/21 Pantoprazole [Protonix] 40 mg PO DAILY 01/31/21 01/31/21 - Allergies Allergies/Adverse Reactions: Allergies Allergy/AdvReac Type Severity Reaction Status Date / Time No Known Drug Allergies Allergy Verified 11/23/20 19:10 - Social History Does the pt smoke?: Yes Smoking Status: Current every day smoker Does the pt drink ETOH?: No Does the pt have substance abuse?: No - Immunizations Immunizations are current?: Yes - POLST Patient has POLST: No PD ED PE EXPANDED - General General: Alert, No acute distress - Neck Neck: Supple w/out meningeal sx. No: Adenopathy - Cardiac Cardiac: Regular Rate, Radial strong equal, Pedal strong equal, Cap refill < 2 sec. No: Murmur Present - Respiratory Respiratory: Decreased breath sounds (right side). No: Labored, Wheezing, Rhonchi - Abdomen Abdomen: Normal Bowel sounds. No: Tender to palpation - Derm Derm: Normal color, Warm and dry. No: Rash, Petecchiae, Purpura - Extremities Extremities: Normal. No: Deformity, Tenderness - Neuro Neuro: Confused, CNII-XII intact, Normal finger nose, Normal speech - GCS Eye Opening: Spontaneous Motor: Obeys Commands Verbal: Confused Total: 14 Results - Vitals Vitals: Vital Signs - 24 hr 01/31/21 01/31/21 01/31/21 19:50 20:35 21:05 Temperature 37.3 C 36.9 C Heart Rate 88 88 84 Respiratory 21 24 Rate Blood Pressure 99/80 90/77 75/45 L O2 Saturation 94 93 93 01/31/21 01/31/21 01/31/21 21:52 22:03 22:26 Temperature Heart Rate 87 83 79 Respiratory 18 18 11 L Rate Blood Pressure 85/52 L 86/53 L 84/53 L O2 Saturation 96 97 99 01/31/21 01/31/21 01/31/21 22:37 23:02 23:36 Temperature Heart Rate 80 79 78 Respiratory 15 18 12 Rate Blood Pressure 65/52 L 86/65 L 84/64 L O2 Saturation 96 98 99 01/31/21 23:53 Temperature Heart Rate 78 Respiratory 13 Rate Blood Pressure 91/57 L O2 Saturation 100 Oxygen O2 Source Room air Oxygen Flow Rate 6 - EKG (time done) 1950 Rate: Rate (enter#) (91) Rhythm: NSR [place]: LAD Intervals: Normal VT. No: Prolonged QT QRS: Normal Ischemia: Normal ST segments Compare to prior EKG: Unchanged from prior EKG Computer interpretation: Agree with computer - Labs Labs: Laboratory Tests 01/31/21 01/31/21 01/31/21 20:41 20:41 20:41 WBC 11.2 H RBC 4.45 L Hgb 13.0 L Hct 39.3 L MCV 88.3 MCH 29.2 MCHC 33.1 RDW 12.9 Plt Count 342 MPV 9.3 Neut # (Auto) 7.9 H Lymph # (Auto) 2.2 Carson # (Auto) 0.9 Eos # (Auto) 0.2 Baso # (Auto) 0.1 Absolute Nucleated RBC 0.00 Nucleated RBC % 0.0 Sodium 132 L Potassium 3.9 Chloride 92 L Carbon Dioxide 24 Anion Gap 16.0 H BUN 58 H Creatinine 5.3 H Estimated GFR (MDRD) 11 L Glucose 82 Lactic Acid Calcium 9.1 Total Bilirubin 1.3 H AST 70 H ALT 28 Alkaline Phosphatase 73 Troponin I High Sens 31.9 H* B-Natriuretic Peptide Total Protein 7.5 Albumin 4.5 Globulin 3.0 Albumin/Globulin Ratio 1.5 Lipase 33 Urine Color Urine Clarity Urine pH Ur Specific [place] Urine Protein Urine Glucose (UA) Urine Ketones Urine Occult Blood Urine Nitrite Urine Bilirubin Urine Urobilinogen Ur Leukocyte Esterase Urine RBC Urine WBC Ur Squamous Epith Cells Amorphous Sediment Urine Bacteria Urine Casts Urine Culture Comments Nasal Adenovirus (PCR) Nasal B. parapertussis DNA (PCR) Nasal Coronavir 229E PCR Nasal Coronavir HKU1 PCR Nasal Coronavir NL63 PCR Nasal Coronavir OC43 PCR Nasal Enterovir/Rhinovir PCR Nasal Influenza B PCR Nasal Influenza A PCR Nasal Parainfluen 1 PCR Nasal Parainfluen 2 PCR Nasal Parainfluen 3 PCR Nasal Parainfluen 4 PCR Nasal RSV (PCR) Nasal B.pertussis DNA PCR Nasal C.pneumoniae (PCR) [place] Human Metapneumo PCR Nasal M.pneumoniae (PCR) Nasal SARS-CoV-2 (PCR) Urine Opiates Screen Ur Oxycodone Screen Urine Methadone Screen Ur Propoxyphene Screen Ur Barbiturates Screen Ur Tricyclics Screen Ur Phencyclidine Scrn Ur Amphetamine Screen U Methamphetamines Scrn U Benzodiazepines Scrn Urine Cocaine Screen U Cannabinoids Screen 01/31/21 01/31/21 01/31/21 20:41 20:41 21:15 WBC RBC Hgb Hct MCV MCH MCHC RDW Plt Count MPV Neut # (Auto) Lymph # (Auto) Carson # (Auto) Eos # (Auto) Baso # (Auto) Absolute Nucleated RBC Nucleated RBC % Sodium Potassium Chloride Carbon Dioxide Anion Gap BUN Creatinine Estimated GFR (MDRD) Glucose Lactic Acid 1.1 Calcium Total Bilirubin AST ALT Alkaline Phosphatase Troponin I High Sens B-Natriuretic Peptide 125 H Total Protein Albumin Globulin Albumin/Globulin Ratio Lipase Urine Color Urine Clarity Urine pH Ur Specific [place] Urine Protein Urine Glucose (UA) Urine Ketones Urine Occult Blood Urine Nitrite Urine Bilirubin Urine Urobilinogen Ur Leukocyte Esterase Urine RBC Urine WBC Ur Squamous Epith Cells Amorphous Sediment Urine Bacteria Urine Casts Urine Culture Comments Nasal Adenovirus (PCR) NOT DETECTED Nasal B. parapertussis DNA (PCR) NOT DETECTED Nasal Coronavir 229E PCR NOT DETECTED Nasal Coronavir HKU1 PCR NOT DETECTED Nasal Coronavir NL63 PCR NOT DETECTED Nasal Coronavir OC43 PCR NOT DETECTED Nasal Enterovir/Rhinovir PCR NOT DETECTED Nasal Influenza B PCR NOT DETECTED Nasal Influenza A PCR NOT DETECTED Nasal Parainfluen 1 PCR NOT DETECTED Nasal Parainfluen 2 PCR NOT DETECTED Nasal Parainfluen 3 PCR NOT DETECTED Nasal Parainfluen 4 PCR NOT DETECTED Nasal RSV (PCR) NOT DETECTED Nasal B.pertussis DNA PCR NOT DETECTED Nasal C.pneumoniae (PCR) NOT DETECTED Kennedy Human Metapneumo PCR NOT DETECTED Nasal M.pneumoniae (PCR) NOT DETECTED Nasal SARS-CoV-2 (PCR) NOT DETECTED Urine Opiates Screen Ur Oxycodone Screen Urine Methadone Screen Ur Propoxyphene Screen Ur Barbiturates Screen Ur Tricyclics Screen Ur Phencyclidine Scrn Ur Amphetamine Screen U Methamphetamines Scrn U Benzodiazepines Scrn Urine Cocaine Screen U Cannabinoids Screen 01/31/21 01/31/21 23:04 23:20 WBC RBC Hgb Hct MCV MCH MCHC RDW Plt Count MPV Neut # (Auto) Lymph # (Auto) Carson # (Auto) Eos # (Auto) Baso # (Auto) Absolute Nucleated RBC Nucleated RBC % Sodium Potassium Chloride Carbon Dioxide Anion Gap BUN Creatinine Estimated GFR (MDRD) Glucose Lactic Acid Calcium Total Bilirubin AST ALT Alkaline Phosphatase Troponin I High Sens 27.5 H* B-Natriuretic Peptide Total Protein Albumin Globulin Albumin/Globulin Ratio Lipase Urine Color YELLOW Urine Clarity SL. CLOUDY Urine pH 5.0 Ur Specific [place] >=1.030 H Urine Protein 30 H Urine Glucose (UA) NEGATIVE Urine Ketones TRACE Urine Occult Blood MODERATE H Urine Nitrite NEGATIVE Urine Bilirubin NEGATIVE Urine Urobilinogen 0.2 (NORMAL) Ur Leukocyte Esterase NEGATIVE Urine RBC 0-5 Urine WBC 0-3 Ur Squamous Epith Cells RARE Squamous Amorphous Sediment Few Urine Bacteria Rare Urine Casts 0-2 Hyaline Casts Urine Culture Comments NOT INDICATED Nasal Adenovirus (PCR) Nasal B. parapertussis DNA (PCR) Nasal Coronavir 229E PCR Nasal Coronavir HKU1 PCR Nasal Coronavir NL63 PCR Nasal Coronavir OC43 PCR Nasal Enterovir/Rhinovir PCR Nasal Influenza B PCR Nasal Influenza A PCR Nasal Parainfluen 1 PCR Nasal Parainfluen 2 PCR Nasal Parainfluen 3 PCR Nasal Parainfluen 4 PCR Nasal RSV (PCR) Nasal B.pertussis DNA PCR Nasal C.pneumoniae (PCR) [place] Human Metapneumo PCR Nasal M.pneumoniae (PCR) Nasal SARS-CoV-2 (PCR) Urine Opiates Screen POSITIVE H Ur Oxycodone Screen NEGATIVE Urine Methadone Screen NEGATIVE Ur Propoxyphene Screen NEGATIVE Ur Barbiturates Screen NEGATIVE Ur Tricyclics Screen NEGATIVE Ur Phencyclidine Scrn NEGATIVE Ur Amphetamine Screen NEGATIVE U Methamphetamines Scrn NEGATIVE U Benzodiazepines Scrn NEGATIVE Urine Cocaine Screen NEGATIVE U Cannabinoids Screen NEGATIVE - Rads (name of study) cxr Radiology: Final report received (No acute cardiopulmonary disease process) CT head Radiology: Final report received (no acute intracranial process) CT chest Radiology: Final report received (Dense right lower lobe atelectasis versus infiltrate. Small right pleural effusion) CT abd Radiology: Final report received (Dense colonic fecal retention without obstruction. Fatty liver infiltration. Fatty pancreas degeneration.) Procedures - Central Line Central Line Preparation: Consent Obtained, Ultrasound used Central line location: Right IJ Central line type: Triple lumen Central line aftercare: Chlorhexidine disc placed, Secured, Placement confirmed, No pneumothorax, No complications, Pt tolerated well PD MEDICAL DECISION MAKING - ED course Complexity details: reviewed results, re-evaluated patient, d/w patient, d/w family ED course: 47-year-old male is transported to the emergency department for evaluation of hypoxia and confusion that has progressed over the last 2 days. He has a history of previous CVA, myocardial infarction and seizures in August 2020. According to his he was treated at [facility] and while in treatment there his kidneys did shut down. On presentation to the emergency department here the patient is somewhat agitated and confused. He is on 6 L nasal cannula with saturations of 94%. On room air his saturations are in the mid 80s. He does not have any history of COPD or asthma. Initial screening labs reveal an acute kidney injury with a BUN of 58 and a creatinine of 5.3. Patient is initially repleted with 2 L of crystalloid. However on presentation to the ER he had a soft blood pressure in the 90s over 50s which slowly declined into the 60s over 30s. A right IJ central venous catheter was placed emergently at the bedside for fluid resuscitation and inotrope management. He has been placed on a Levophed infusion. Though his initial lactic is negative the hypotension is concerning for sepsis. Patient will be started on vancomycin (one time dose given juan manuel) and cefepime. I have requested nursing staff keep BP with SBP > 90 or MAP 55. EKG is non -ischemic but initial troponin 31. Likely secondary JUAN MANUEL. will send repeat troponin andlactate as well I did speak with our hospitalist Dr. Fleming and because of the acute kidney injury she does not feel that he would be appropriate for evaluation and treatment here as we do not have nephrology on staff therefore we are going to seek evaluation at other hospitals. CT of the head chest and abdomen do not show any obvious reason for pathology at present. 2145: I have spoken with educational technology coordinator with the [facility]. We have discussed the patient's case I have requested an ICU bed for him and she is currently seeking a hospital for him. 2335: Patient will be signed out to my nighttime colleague Dr. High for further evaluation and disposition pending transfer to an acute care hospital with appropriate services. Departure - Departure Clinical Impression: JUAN MANUEL (acute kidney injury), Elevated troponin Altered mental status Qualifiers: Altered mental status type: coma Coma depth: [place] coma 13-15 Coma timing: at arrival to emergency department Qualified Code(s): R40.2412 - [place] coma scale score 13-15, at arrival to emergency department Hypotension Qualifiers: Hypotension type: unspecified hypotension type Qualified Code(s): I95.9 - Hypot ension, unspecified
--- NOTE | 2021-01-31 20:46 | XRAY Report ---
PROCEDURE: Chest 1 View X-Ray INDICATIONS: Chest Pain TECHNIQUE: One view of the chest was acquired. COMPARISON: 10/14/2020, 09/21/2020 and 09/12/2020. FINDINGS: Surgical changes and devices: None. Lungs and pleura: No pleural effusions or pneumothorax. Elevated right hemidiaphragm is stable. Plat elike atelectasis noted in the right lung base. Mediastinum: Mediastinal contours appear normal. Heart size is normal. Bones and chest wall: No suspicious bony lesions. Overlying soft tissues appear unremarkable. IMPRESSION: No acute cardiopulmonary disease process. Reviewed by: Jessica Quevedo MD, PhD on 01/31/2021 8:45 PM PDT Approved by: Jessica Quevedo MD, PhD on 01/31/2021 8:45 PM PDT Station ID: [id number]
[2021-01-31 20:55] LABS: BASOPHILS # (AUTO) 0.1 10^3/uL (0.0-0.1); BASOPHILS % (AUTO) 0.7 %; EOSINOPHILS # (AUTO) 0.2 10^3/uL (0.0-0.7); EOSINOPHILS % (AUTO) 1.3 %; HCT - HEMATOCRIT 39.3 % (42.0-52.0); LYMPHOCYTES # (AUTO) 2.2 10^3/uL (1.5-3.5); LYMPHOCYTES % (AUTO) 19.3 %; MEAN CORPUSCULAR HEMOGLOBIN 29.2 pg (27.0-31.0); MEAN CORPUSCULAR HGB CONC 33.1 g/dL (32.0-36.0); MEAN CORPUSCULAR VOLUME 88.3 fL (80.0-94.0); MEAN PLATELET VOLUME 9.3 fL (7.4-11.4); MONOCYTES # (AUTO) 0.9 10^3/uL (0.0-1.0); MONOCYTES % (AUTO) 7.6 %; NEUTROPHILS # (AUTO) 7.9 10^3/uL (1.5-6.6); NEUTROPHILS % (AUTO) 70.8 %; PLT - PLATELET COUNT 342 10^3/uL (130-450); RED BLOOD COUNT 4.45 10^6/uL (4.70-6.10); RED CELL DISTRIBUTION WIDTH 12.9 % (12.0-15.0); WHITE BLOOD COUNT 11.2 x10^3/uL (4.8-10.8)
[2021-01-31] MEDS ORDERED: IOPAMIDOL-300 100 ML VIAL ONE (21:01)
[2021-01-31 21:04] LABS: ALBUMIN 4.5 g/dL (3.2-5.5); ALBUMIN/GLOBULIN RATIO 1.5 (1.0-2.2); BILIRUBIN,TOTAL 1.3 mg/dL (0.2-1.0); CALCIUM 9.1 mg/dL (8.5-10.3); CREATININE 5.3 mg/dL (0.6-1.2); POTASSIUM 3.9 mmol/L (3.5-5.0); TOTAL PROTEIN 7.5 g/dL (6.7-8.2)
[2021-01-31] MEDS ORDERED: SODIUM CHLORIDE 0.9% 1,000 ML IV ONE (21:28)
[2021-01-31] MEDS ORDERED: SODIUM CHLORIDE 0.9% 1,000 ML IV STA (21:59)
[2021-01-31 22:31] LABS: B. PARAPERTUSSIS- RESP PCR PAN NOT DETECTED; B. PERTUSSIS- RESP PCR PANEL NOT DETECTED; C. PNEUMONIAE- RESP PCR PANEL NOT DETECTED; CORONAVIRUS 229E-RESP PCR NOT DETECTED; CORONAVIRUS HKU1-RESP PCR NOT DETECTED; CORONAVIRUS NL63-RESP PCR NOT DETECTED; CORONAVIRUS OC43-RESP PCR NOT DETECTED; HUMAN METAPNEUMOVIRUS NOT DETECTED; INFLUENZA A- RESP PCR PANEL NOT DETECTED; INFLUENZA B - RESP PCR PANEL NOT DETECTED; M. PNEUMONIAE- RESP PCR PANEL NOT DETECTED; PARAINFLUENZA VIRUS 1 NOT DETECTED; PARAINFLUENZA VIRUS 2 NOT DETECTED; PARAINFLUENZA VIRUS 3 NOT DETECTED; PARAINFLUENZA VIRUS 4 NOT DETECTED; RHINOVIRUS/ENTEROVIRUS NOT DETECTED; RSV- RESP PCR PANEL NOT DETECTED; SARS-CoV-2 -RESP PCR PANEL NOT DETECTED
[2021-01-31 23:29] LABS: MUDS CUTOFF CONCENTRATIONS CUTOFF CONC BELOW:
[2021-01-31] MEDS ORDERED: VANCOMYCIN INJ 1.25 GM in SODIUM CHLORIDE 0.9% 500 ML IV STA (23:40)
[2021-01-31 23:41] LABS: BILIRUBIN,URINE NEGATIVE (NEGATIVE); GLUCOSE, URINE (UA) NEGATIVE (NEGATIVE); KETONES,URINE (UA) TRACE mg/dL (NEGATIVE); LEUKOCYTE ESTERASE, URINE NEGATIVE (NEGATIVE); NITRITE,URINE NEGATIVE (NEGATIVE); OCCULT BLOOD,URINE MODERATE (NEGATIVE); PROTEIN,URINE 30 mg/dL (NEGATIVE); UROBILINOGEN,URINE 0.2 (NORMAL) E.U./dL (NORMAL)
[2021-01-31] MEDS ORDERED: CEFEPIME 2 GM in SODIUM CHLORIDE 0.9% MINIBAG 100 ML IV STA (23:41)
[2021-01-31 23:45] LABS: CLARITY,URINE SL. CLOUDY (CLEAR)
[2021-01-31 23:51] LABS: AMORPHOUS SEDIMENT,UR Few /LPF; BACTERIA,URINE Rare /HPF (None Seen); CASTS, URINE 0-2 Hyaline Casts /LPF; RBC,URINE 0-5 /HPF (0-5); SQUAMOUS EPITHELIAL CELL,UR RARE Squamous (<= Few); WBC,URINE 0-3 /HPF (0-3)
[2021-01-31 23:52] LABS: AMPHETAMINE SCREEN,URINE NEGATIVE (NEGATIVE); BARBITURATE SCREEN,UR NEGATIVE (NEGATIVE); BENZODIAZEPINES SCREEN, URINE NEGATIVE (NEGATIVE); COCAINE SCREEN URINE NEGATIVE (NEGATIVE); METHADONE SCREEN, URINE NEGATIVE (NEGATIVE); METHAMPHETAMINES SCREEN, URINE NEGATIVE (NEGATIVE); OPIATE SCREEN, URINE POSITIVE (NEGATIVE); OXYCODONE SCREEN, URINE NEGATIVE (NEGATIVE); PROPOXYPHENE SCREEN, URINE NEGATIVE (NEGATIVE); THC CANNABINOID SCREEN, URINE NEGATIVE (NEGATIVE); TRICYCLIC ANTIDEPRESSANT,URINE NEGATIVE (NEGATIVE)
[2021-02-01] MEDS ORDERED: VASOPRESSIN 20 UNIT/ML VIAL ONE (00:27)
[2021-02-01 00:50] VITALS: BP 110/59
[2021-02-01] MEDS ORDERED: VASOPRESSIN 20 UNIT in DEXTROSE 5% 99 ML IV SCH (01:00)
--- NOTE | 2021-02-01 07:41 | CT Report ---
PROCEDURE: HEAD WO INDICATIONS: confusion TECHNIQUE: Noncontrast 4.5 mm thick angled axial sections acquired from the foramen magnum to the vertex. For r adiation dose reduction, the following was used: automated exposure control, adjustment of mA and/or kV according to patient size. COMPARISON: None. FINDINGS: Image quality: Excellent. CSF spaces: Basal cisterns are patent. No extra-axial fluid collections. Ventricles are normal in size and shape. Brain: No midline shift. No intracranial masses or hemorrhage. Michael-white matter interface is norm al. Skull and face: Calvarium and visualized facial bones are intact, without suspicious lesions. Sinuses: Small mucous retention cysts at the base of both maxillary sinuses. Visualized sinuses and mastoids are otherwise clear. IMPRESSION: 1. No CT evidence of acute intracranial process. 2. Concordant with preliminary report. Reviewed by: Karma Majano MD on 02/01/2021 7:40 AM PDT Approved by: Karma Majano MD on 02/01/2021 7:40 AM PDT Station ID: [id number]
--- NOTE | 2021-02-01 07:48 | CT Report ---
PROCEDURE: CHEST WO INDICATIONS: hypoxia TECHNIQUE: Noncontrast images were acquired from the pulmonary apices to the posterior costophrenic angles. Mul tiplanar MIP reformats were then acquired. For radiation dose reduction, the following was used: au tomated exposure control, adjustment of mA and/or kV according to patient size. COMPARISON: 09/21/2020, chest x-ray 01/31/2021 FINDINGS: Image quality: Diagnostic, there is motion artifact.. Lungs and pleura: Dense posterior right lower lobe consolidation. Asymmetrically elevated right mackenzie diaphragm which is chronic. Atelectatic changes also present in the right middle lobe. Minor left pos terior costophrenic sulcus atelectasis. No pleural effusion. Central and peripheral airways are pat ent and normal in caliber. Mediastinum: Heart size is normal. No pericardial effusion. No mediastinal adenopathy by size crit eria. Thoracic aorta and central pulmonary arteries are normal in size. Esophagus is normal in tanvi megan. No hiatal hernia. Bones and chest wall: No suspicious bony lesions. No acute vertebral body compression fractures. Ch ronic central superior endplate height loss of T10. No axillary or supraclavicular adenopathy by size criteria. The thyroid is normal in size and there are no incidental findings. Abdomen: Visualized upper abdominal solid organs and bowel loops appear normal in the absence of con trast. IMPRESSION: 1. Limited exam due to motion artifact. 2. Chronic asymmetric right hemidiaphragm elevation with associated consolidations in the right middl e and lower lobe. Right lower lobe consolidation has increased compared to the prior study and an und erlying infection cannot be excluded. 3. The exam is otherwise stable. 4. Concordant with preliminary report. Reviewed by: Karma Majano MD on 02/01/2021 7:46 AM PDT Approved by: Karma Majano MD on 02/01/2021 7:46 AM PDT Station ID: [id number]
--- NOTE | 2021-02-01 07:51 | CT Report ---
PROCEDURE: Abdomen/Pelvis WO INDICATIONS: r/p stones; sepsis TECHNIQUE: Noncontrast 5 mm thick sections acquired from the diaphragms to the symphysis. 5 mm coronal and sagi ttal reformats were then performed. For radiation dose reduction, the following was used: automated exposure control, adjustment of mA and/or kV according to patient size. COMPARISON: None. FINDINGS: Image quality: Adequate. There is motion artifact.. ABDOMEN: Lung bases: Asymmetric right hemidiaphragm elevation and dense right base consolidation. Please see a ccompanying chest CT report. Heart size is normal. Solid organs: Liver and spleen are normal in size. Gallbladder is distended but appears otherwise n ormal Pancreas is fatty replaced but normal in contours. No adrenal nodules. Kidneys are normal in size, without hydronephrosis or nephrolithiasis. Peritoneum and bowel: Unenhanced bowel loops demonstrate normal wall thickness and caliber. Normal appendix. Occasional sigmoid diverticulosis. No free fluid or air. Nodes and vessels: No retroperitoneal or mesenteric adenopathy by size criteria. Aorta and inferior vena cava are normal in caliber. Miscellaneous: No ventral hernias. PELVIS: Genitourinary: Bladder wall thickness is normal. The prostate gland appears normal size. Miscellaneous: No inguinal hernias or adenopathy. Bones: Right hip arthroplasty change in securing a portion of the pelvis. Grade 1 anterolisthesis an d disc degeneration at L4-5. No suspicious bony lesions. No vertebral body compression fractures. IMPRESSION: 1. No acute process in the abdomen or pelvis. 2. Occasional sigmoid diverticulosis. 3. Concordant with preliminary report. Reviewed by: Karma Majano MD on 02/01/2021 7:49 AM PDT Approved by: Karma Majano MD on 02/01/2021 7:49 AM PDT Station ID: [id number]
--- NOTE | 2021-02-01 07:52 | XRAY Report ---
PROCEDURE: Chest for Line Placement INDICATIONS: line placement TECHNIQUE: One view of the chest was acquired. COMPARISON: 01/31/2021, 10/10/2020. Correlation is also made with the accompanying chest CT, 01/31/2021. FINDINGS: Surgical changes and devices: A right-sided central line is seen, with the tip overlying the superior aspect of the superior vena cava. Postoperative change of the right glenoid can be seen. Lungs and pleura: There is elevation of the right hemidiaphragm, which is clearly worse compared to . Streaky consolidation is seen at the right lung base. The left lung appears clear. No pneum othorax is seen. Mediastinum: Mediastinal contours appear normal. Heart size is normal. Bones and chest wall: No suspicious bony lesions. Overlying soft tissues appear unremarkable. IMPRESSION: The tip of the right-sided central line overlies the superior aspect of the superior vena cava. Elevated right hemidiaphragm. Consolidation is seen at the right lung base, which is likely related t o atelectasis, differential diagnosis includes infiltrate. Note: No significant discrepancy from the preliminary report. Reviewed by: Julio Alvarez MD on 02/01/2021 6:50 AM ANTONI Approved by: Juilo Alvarez MD on 02/01/2021 6:50 AM ANTONI Station ID: [id number]
== END 2021-02-01 01:17 | disposition short-term general hospital (02) ==
LOC: EDUNIT# → EDBD → ED 19:44
DX: N17.9 Acute kidney failure, unspecified (principal); I75.89 Atheroembolism of other site; R77.8 Other specified abnormalities of plasma proteins; R40.2412 Glasgow coma scale score 13-15, at arrival to emergency department; I95.9 Hypotension, unspecified; F17.200 Nicotine dependence, unspecified, uncomplicated; I25.2 Old myocardial infarction; I11.9 Hypertensive heart disease without heart failure; Z20.822 Contact with and (suspected) exposure to COVID-19; R41.0 Disorientation, unspecified
CPT/HCPCS: 36415; 36556; 70450; 71045; 71250; 74176; 80053; 80306; 81001; 82550; 83605; 83690; 83880; 84484; 85025; 87631; 93005; 96361; 96365; 96375; 99285; J3370; 0202U; 82803; 87086

== ENCOUNTER 2021-02-26 17:46 | Outpatient (CLI) | payer MEDICARE | END 2021-02-26 23:59 | disposition critical access hospital (66) | LOC: EMS 17:46 | DX: R41.82 Altered mental status, unspecified (principal) | CPT/HCPCS: A0425; A0427 ==

== ENCOUNTER 2021-02-26 18:05 | Emergency (ER) | payer MEDICARE ==
[2021-02-26] MEDS ORDERED: DEXTROSE 50% ABBOJECT 25 GM/50 ML SYRINGE IVP STA (18:32)
[2021-02-26] MEDS ORDERED: DEXTROSE 50% ABBOJECT 25 GM/50 ML SYRINGE ONE (18:37)
[2021-02-26 18:50] LABS: BASOPHILS # (AUTO) 0.1 10^3/uL (0.0-0.1); BASOPHILS % (AUTO) 0.5 %; EOSINOPHILS # (AUTO) 0.2 10^3/uL (0.0-0.7); EOSINOPHILS % (AUTO) 1.9 %; HCT - HEMATOCRIT 40.3 % (42.0-52.0); LYMPHOCYTES # (AUTO) 2.4 10^3/uL (1.5-3.5); LYMPHOCYTES % (AUTO) 24.7 %; MEAN CORPUSCULAR HEMOGLOBIN 28.9 pg (27.0-31.0); MEAN CORPUSCULAR HGB CONC 32.3 g/dL (32.0-36.0); MEAN CORPUSCULAR VOLUME 89.6 fL (80.0-94.0); MONOCYTES # (AUTO) 0.7 10^3/uL (0.0-1.0); NEUTROPHILS # (AUTO) 6.3 10^3/uL (1.5-6.6); NEUTROPHILS % (AUTO) 65.7 %; PLT - PLATELET COUNT 322 10^3/uL (130-450); RED CELL DISTRIBUTION WIDTH 12.3 % (12.0-15.0); WHITE BLOOD COUNT 9.6 x10^3/uL (4.8-10.8)
[2021-02-26 19:05] LABS: ALBUMIN 4.6 g/dL (3.2-5.5); ALBUMIN/GLOBULIN RATIO 1.5 (1.0-2.2); BILIRUBIN,TOTAL 1.3 mg/dL (0.2-1.0); CALCIUM 9.5 mg/dL (8.5-10.3); CREATININE 3.9 mg/dL (0.6-1.2); TOTAL PROTEIN 7.7 g/dL (6.7-8.2)
[2021-02-26 19:07] LABS: POTASSIUM 6.7 mmol/L (3.5-5.0)
[2021-02-26] MEDS ORDERED: CALCIUM GLUCONATE 2,000 MG in SODIUM CHLORIDE 0.9% 100ML 100 ML IV STA (19:17)
[2021-02-26] MEDS ORDERED: ALBUTEROL NEB 2.5 MG/3 ML INH STA ×2 (19:17→21:07)
[2021-02-26] MEDS ORDERED: SODIUM BICARBONATE ABBOJECT 50 MEQ/50 ML SYRINGE IVP STA (19:19)
[2021-02-26] MEDS ORDERED: CALCIUM GLUCONATE 1000 MG/10 ML VIAL ONE (19:32)
[2021-02-26 19:50] LABS: CALCIUM 9.6 mg/dL (8.5-10.3); CREATININE 4.1 mg/dL (0.6-1.2)
[2021-02-26 19:52] LABS: POTASSIUM 6.8 mmol/L (3.5-5.0)
--- NOTE | 2021-02-26 20:55 | CT Report ---
PROCEDURE: HEAD WO INDICATIONS: AMS TECHNIQUE: Noncontrast 4.5 mm thick angled axial sections acquired from the foramen magnum to the vertex. For r adiation dose reduction, the following was used: automated exposure control, adjustment of mA and/or kV according to patient size. COMPARISON: CT head 01/31/2021 FINDINGS: Image quality: Excellent. CSF spaces: Basal cisterns are patent. No extra-axial fluid collections. Ventricles are normal in size and shape. Brain: No midline shift. No intracranial masses or hemorrhage. Michael-white matter interface is norm al. Skull and face: Calvarium and visualized facial bones are intact, without suspicious lesions. Sinuses: Visualized sinuses and mastoids are clear. IMPRESSION: 1. No acute intracranial process. Reviewed by: Leonela Shah MD on 02/26/2021 8:54 PM PDT Approved by: Leoenla Shah MD on 02/26/2021 8:54 PM PDT Station ID: [id number]
[2021-02-26] MEDS ORDERED: DEXTROSE 5%-0.45% NACL 1,000 ML IV STA (21:06)
--- NOTE | 2021-02-26 21:28 | ED Physician Documentation ---
History of Present Illness - Stated complaint Stated Complaint: LOW BLOOD SUGAR - Chief complaint Chief Complaint: General - History obtained from History obtained from: Patient, Family () - Additonal information Additional information: 66-year-old man with past medical history of diabetes, high blood pressure, stroke in August 2020, seizure, [place], recent hospitalization at [facility] February 01 to February 04 with JUAN MANUEL and altered mental status, presents again with altered mental status this evening. states that he has been sleeping poorly at night and was feeling sick over the past couple of days, telling her that he just "do not feel right". They called Dr. Cerrato on Tuesday because his blood pressure was 100/58 and were told to hold his metoprolol. Patient has not been taking it since that time but has had persistent generalized malaise and then slept all day today without having eaten anything except for steak dinner the night prior. His checked on him and found him to be confused and called EMS. On arrival, fingerstick glucose 33, then 50 then 40 then 74 in the emergency department. reports that he still makes urine. patient AOX1 (thinks he's at [facility]). Review of Systems Unable to obtain: Confused PD PAST MEDICAL HISTORY - Past Medical History Past Medical History: Yes Cardiovascular: Hypertension, High cholesterol Respiratory: COPD Neuro: CVA Endocrine/Autoimmune: None GI: GERD, Colon polyps, Diverticulitis : None HEENT: Chronic hearing loss, Other Psych: Depression, Anxiety, Panic attacks Musculoskeletal: Osteoarthritis, Chronic back pain Derm: Psoriasis, Other Other Past Medical History: JUAN MANUEL - Past Surgical History Past Surgical History: Yes Ortho: Hip replacement, Knee replacement, Shoulder arthroplasty, Other - Present Medications Home Medications: Ambulatory Orders Medication Instructions Recorded Confirmed HYDROcodone/ACET 10/325 [[place] 10 1 tab PO DAILY 11/07/15 01/31/21 mg/325 mg] Metformin HCl [Metformin ER 1,000 mg PO BID 09/12/20 01/31/21 Gastric] Albuterol Sulfate [Proair 1 puffs INH DAILY 10/14/20 01/31/21 Digihaler] Furosemide [Lasix] 20 mg PO DAILY 10/14/20 01/31/21 Gabapentin [Neurontin] 600 mg PO TID 10/14/20 01/31/21 Indomethacin [Indocin] 50 mg PO DAILY 10/14/20 01/31/21 Losartan Potassium 25 mg PO DAILY 10/14/20 01/31/21 Metoprolol Succinate [Toprol Xl] 200 mg PO DAILY 10/14/20 01/31/21 Morphine Sulfate ER [Ms Contin] 30 mg PO DAILY 10/14/20 01/31/21 Spironolactone [Aldactone] 25 mg PO DAILY 10/14/20 01/31/21 Levetiracetam [Keppra] 500 mg PO BID 01/31/21 01/31/21 Tamsulosin [Flomax] 2 cap DAILY 02/26/21 02/26/21 - Allergies Allergies/Adverse Reactions: Allergies Allergy/AdvReac Type Severity Reaction Status Date / Time No Known Drug Allergies Allergy Verified 11/23/20 19:10 - Social History Does the pt smoke?: Yes Smoking Status: Current every day smoker Does the pt drink ETOH?: No Does the pt have substance abuse?: No - Immunizations Immunizations are current?: Yes - POLST Patient has POLST: No PD ED PE NORMAL - Vitals Vital signs reviewed: Yes - General General: No acute distress, Other (elderly appearing) - HEENT HEENT: Atraumatic, PERRL, EOMI, Other (dry MM) - Neck Neck: Supple, no meningeal sign - Cardiac Cardiac: Other (Borderline tachycardic rate, regular rhythm) - Respiratory Respiratory: No respiratory distress, Clear bilaterally - Abdomen Abdomen: Non tender, Non distended - Back Back: No CVA TTP - Derm Derm: Normal color, Warm and dry - Extremities Extremities: No deformity - Neuro 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 AO x1) - Psych Psych: Other (confused) Results - Vitals Vitals: Vital Signs - 24 hr 02/26/21 02/26/21 02/26/21 18:13 18:24 18:30 Temperature 36.1 C L Heart Rate 109 H 102 H 103 H Respiratory 18 20 18 Rate Blood Pressure 147/125 H 143/103 H 126/99 H O2 Saturation 99 93 93 02/26/21 02/26/21 02/26/21 18:45 19:50 20:19 Temperature Heart Rate 104 H 102 H 100 Respiratory 18 14 13 Rate Blood Pressure 96/71 98/70 O2 Saturation 92 94 02/26/21 02/26/21 02/26/21 20:30 21:06 21:20 Temperature Heart Rate 99 99 98 Respiratory 14 14 16 Rate Blood Pressure 98/70 111/86 H O2 Saturation 92 92 02/26/21 02/26/21 21:35 22:09 Temperature Heart Rate 106 H 104 H Respiratory 12 14 Rate Blood Pressure 130/87 H 130/87 H O2 Saturation 93 96 Oxygen O2 Source Oxymizer - EKG (time done) 1811 Rate: Rate (enter#) (106) Rhythm: Sinus tachycardia [place]: LAD Intervals: Normal [place] QRS: Normal Ischemia: Other (no stemi) - Labs Labs: Laboratory Tests 02/26/21 02/26/21 02/26/21 18:46 18:46 19:36 WBC 9.6 RBC 4.50 L Hgb 13.0 L Hct 40.3 L MCV 89.6 MCH 28.9 MCHC 32.3 RDW 12.3 Plt Count 322 MPV 9.0 Neut # (Auto) 6.3 Lymph # (Auto) 2.4 [place] # (Auto) 0.7 Eos # (Auto) 0.2 Baso # (Auto) 0.1 Absolute Nucleated RBC 0.00 Nucleated RBC % 0.0 Sodium 128 L 129 L Potassium 6.7 H* 6.8 H* Chloride 89 L 90 L Carbon Dioxide 27 27 Anion Gap 12.0 12.0 BUN 58 H 60 H Creatinine 3.9 H 4.1 H Estimated GFR (MDRD) 16 L 15 L Glucose 226 H 131 H Calcium 9.5 9.6 Total Bilirubin 1.3 H AST 15 ALT 12 Alkaline Phosphatase 75 Total Protein 7.7 Albumin 4.6 Globulin 3.1 Albumin/Globulin Ratio 1.5 Lipase 22 Nasal Adenovirus (PCR) Nasal B. parapertussis DNA (PCR) Nasal Coronavir 229E PCR Nasal Coronavir HKU1 PCR Nasal Coronavir NL63 PCR Nasal Coronavir OC43 PCR Nasal Enterovir/Rhinovir PCR Nasal Influenza B PCR Nasal Influenza A PCR Nasal Parainfluen 1 PCR Nasal Parainfluen 2 PCR Nasal Parainfluen 3 PCR Nasal Parainfluen 4 PCR Nasal RSV (PCR) Nasal B.pertussis DNA PCR Nasal C.pneumoniae (PCR) [place] Human Metapneumo PCR Nasal M.pneumoniae (PCR) Nasal SARS-CoV-2 (PCR) Ethyl Alcohol 0902/26/21 02/26/21 19:36 20:50 20:55 WBC RBC Hgb Hct MCV MCH MCHC RDW Plt Count MPV Neut # (Auto) Lymph # (Auto) [place] # (Auto) Eos # (Auto) Baso # (Auto) Absolute Nucleated RBC Nucleated RBC % Sodium Potassium 6.4 H* Chloride Carbon Dioxide Anion Gap BUN Creatinine Estimated GFR (MDRD) Glucose Calcium Total Bilirubin AST ALT Alkaline Phosphatase Total Protein Albumin Globulin Albumin/Globulin Ratio Lipase Nasal Adenovirus (PCR) NOT DETECTED Nasal B. parapertussis DNA (PCR) NOT DETECTED Nasal Coronavir 229E PCR NOT DETECTED Nasal Coronavir HKU1 PCR NOT DETECTED Nasal Coronavir NL63 PCR NOT DETECTED Nasal Coronavir OC43 PCR NOT DETECTED Nasal Enterovir/Rhinovir PCR NOT DETECTED Nasal Influenza B PCR NOT DETECTED Nasal Influenza A PCR NOT DETECTED Nasal Parainfluen 1 PCR NOT DETECTED Nasal Parainfluen 2 PCR NOT DETECTED Nasal Parainfluen 3 PCR NOT DETECTED Nasal Parainfluen 4 PCR NOT DETECTED Nasal RSV (PCR) NOT DETECTED Nasal B.pertussis DNA PCR NOT DETECTED Nasal C.pneumoniae (PCR) NOT DETECTED [place] Human Metapneumo PCR NOT DETECTED Nasal M.pneumoniae (PCR) NOT DETECTED Nasal SARS-CoV-2 (PCR) NOT DETECTED Ethyl Alcohol < 5.0 PD MEDICAL DECISION MAKING - ED course ED course: 66-year-old man presents with JUAN MANUEL and altered mental status as well as hypoglycemia in the field, improved with an amp of dextrose. Hyperkalemia without acute EKG changes. Treated with calcium gluconate and other meds to shift potassium. Discussed with [facility] for transfer. Departure - Departure Disposition: Transfer Acute Care Hosp Clinical Impression: JUAN MANUEL (acute kidney injury), AMS (altered mental status) Condition: Stable Discharge Date/Time: 02/26/21 22:09
[2021-02-26 21:36] VITALS: BP 130/87
[2021-02-26 21:56] LABS: B. PARAPERTUSSIS- RESP PCR PAN NOT DETECTED; B. PERTUSSIS- RESP PCR PANEL NOT DETECTED; C. PNEUMONIAE- RESP PCR PANEL NOT DETECTED; CORONAVIRUS 229E-RESP PCR NOT DETECTED; CORONAVIRUS HKU1-RESP PCR NOT DETECTED; CORONAVIRUS NL63-RESP PCR NOT DETECTED; CORONAVIRUS OC43-RESP PCR NOT DETECTED; HUMAN METAPNEUMOVIRUS NOT DETECTED; INFLUENZA A- RESP PCR PANEL NOT DETECTED; INFLUENZA B - RESP PCR PANEL NOT DETECTED; M. PNEUMONIAE- RESP PCR PANEL NOT DETECTED; PARAINFLUENZA VIRUS 1 NOT DETECTED; PARAINFLUENZA VIRUS 2 NOT DETECTED; PARAINFLUENZA VIRUS 3 NOT DETECTED; PARAINFLUENZA VIRUS 4 NOT DETECTED; RHINOVIRUS/ENTEROVIRUS NOT DETECTED; RSV- RESP PCR PANEL NOT DETECTED; SARS-CoV-2 -RESP PCR PANEL NOT DETECTED
== END 2021-02-26 22:09 | disposition short-term general hospital (02) ==
LOC: EDUNIT# → ED 18:05
DX: N17.9 Acute kidney failure, unspecified (principal); I10 Essential (primary) hypertension; I25.2 Old myocardial infarction; F17.200 Nicotine dependence, unspecified, uncomplicated; J44.9 Chronic obstructive pulmonary disease, unspecified; Z20.822 Contact with and (suspected) exposure to COVID-19
CPT/HCPCS: 36415; 70450; 80048; 80053; 83690; 84132; 85025; 87631; 93005; 94640; 96365; 96375; 99285; G0480; 0202U; 80320

== ENCOUNTER 2021-02-26 22:03 | Outpatient (CLI) | payer MEDICARE | END 2021-02-26 23:59 | disposition short-term general hospital (02) | LOC: EMS 22:03 | PROVIDERS: ATTEND Emergency Medicine | DX: R41.82 Altered mental status, unspecified (principal) | CPT/HCPCS: A0425; A0426 ==

== ENCOUNTER 2021-03-12 14:12 | Outpatient (CLI) | payer MEDICARE ==
[2021-03-12 14:53] VITALS: BP 103/73
--- NOTE | 2021-03-12 14:53 | SLEEP CARE CONSULTATION ---
Information from patient questionnaire entered by Sally Dial. I have reviewed and concur with the information entered by Sally Dial. This document represents the service I personally performed and the decisions made by me, Ruthie Andrews ARNP. History of Present Illness Service Date and Time: 03/12/2021 1412 Reason for Visit: New patient, Previously diagnosed sleep apnea (mild - AHI - 11.6), Re-establish care (last seen 05/2014) Chief Complaint: reports: Insomnia, Unrefreshed sleep, Snoring, Excessive daytime sleepiness, Observed pauses in breathing, Fatigue, Frequent awakenings at night Date of Onset: years Usual bedtime: 12 - 4 am Time it takes to fall asleep: with Melatonin, about 1 hour Snores at night: Yes Observed to quit breathing while asleep: Yes Sleeps alone due to snoring: No Number of times waking at night: several Reasons for waking at night: reports: Gasping for air, Pain, Bathroom Toss, Turn, or Twitch while sleeping: Yes Recalls having dreams: Yes Usually gets out of bed at: 9 am Feels refreshed in the morning: No Morning headache: No Sleepy or fatigued during the day: Yes Ever fallen asleep while driving: No Takes day naps: No Dreams during day naps: No Prior sleep studies: Yes Year and Where: 2013 - [facility] Type of Sleep Study: Polysomnography Additional HPI information: LORA BASS was previously diagnosed to have mild, AHI 11.6, obstructive sleep apnea-hypopnea syndrome and comes in today to re-establish care. Patient is not currently on CPAP/BIPAP therapy and has not been on it for many years. He returns after being in hospital three times this year due to renal issues. His doctor and have encouraged him to come in for re-evaluation. They have been working on reducing medications to see what is causing his problems. He states he snores occasionally. He does not wake up feeling refreshed and is fatigued during in the day. He still has some pauses in breathing when sleeping. He does wake up gasping for air sometimes. He has had a heart attack and a stroke in August 2019. - Parasomnia Symptoms Ever been unable to move upon waking from sleep: No Walks in sleep: No Talks in sleep: Yes Ever acted out dreams in sleep: Yes (sometimes) Ever felt weak in the knees when startled or emotional: No Bothered by creepy, crawly, restless sensations in legs: No Problems with memory or concentration: Yes Subjective Initial [place] Sleepiness Scale score: 4 (in 2013) Current [place] Sleepiness Scale score: 6 Past Medical History Past Medical History: reports: Hypertension, Claustrophobia, Congestive Heart Failure, Diabetes, Arthritis, Gout, Anxiety, Depression, GERD, Other (stroke and heart attack after a seizure - 08/2019, has other seizures) Social History The patient's occupation is a Retired. Patient is and lives in [place]. Have you smoked in the past 12 months: Yes Cigarettes per day (20/pack): 20 Years of smokin Quit date: just quit vape Smoking Pack Years: 35.0 Alcohol use: Yes Alcohol amount and frequency: 1 beer every 3-4 days Caffeine use: Yes Caffeine amount and frequency: 1 cup a day Family History Family history of sleep disordered breathing: No Allergies and Home Medications Drug allergies reviewed: Yes (NKDA) Home medication list reviewed: Yes (just changed and pt unsure of names) Review of Systems Weight loss over past 5 years: 30 Cardiovascular: reports: high blood pressure, leg or foot swelling, have to sleep sitting up (sometimes) Respiratory: reports: shortness of breath Gastrointestinal: reports: heartburn Urinary: reports: frequency, urgency Neurological: reports: seizure Psychiatric: reports: anxiety, depression, claustrophobia Ear/Nose/Throat: reports: dry mouth/throat, tonsillectomy, wisdom teeth removed Endocrine: reports: sluggishness, too hot or cold Musculoskeletal: reports: joint pain, neck pain, back pain, joint swelling, muscle pain or cramping, mobility problems Physical Exam Blood Pressure: 103/73 Cuff size: wrist Heart Rate: 108 O2 Saturation: 93 Height: 5 ft 9 in Weight: 223 lb Body Mass Index: 32.9 BMI Classification: Obese Heart: regular rate and rhythm Lungs: clear bilaterally Impression and Plan 1. Suspected Obstructive Sleep Apnea-Hypopnea Syndrome, as previously diagnosed and as suggested by a history of loud and irregular snoring, observed cessation of breath while asleep, gasping or choking in sleep, frequent awakening during the night, unrefreshed sleep, cognitive impairment, and excessive daytime sleepiness. Patient has not been on CPAP therapy for about 6 years. I recommend proceeding to polysomnography to confirm the diagnosis and to assess severity. If the patient has significant sleep disordered breathing, a manual CPAP titration study will also be performed to find the optimal treatment pressure. I informed the patient of what the sleep studies involve and after some discussion, obtained agreement to proceed. The pathophysiology of obstructive sleep apnea-hypopnea syndrome was discussed with the patient and health risks of cardiovascular and cerebrovascular disease if not treated. Risks of drowsy driving discussed in detail and patient advised to avoid long distance driving and to extract puller at the first sign of drowsiness. Patient agreed to plan. * Schedule polysomnography +- manual CPAP titration study and return in 1-2 weeks after the study to discuss result and initiate therapy. * Avoid long distance driving or driving when feeling sleepy. * Avoid alcohol, sedative and muscle relaxant around bedtime. * Attempt to lose weight. * Review instructions provided by trained office staff on how to prepare for the sleep study. * Return for follow-up after sleep study completed. Counseling Topics: Weight loss health impact Visit Type: In Office Time Spent with Patient (minutes): 30 Provider Statement: I spent 100% of the Face to Face Visit with the patient with greater than 50% spent counseling the patient and coordination of care.
== END 2021-03-12 14:13 | disposition home or self-care (01) ==
LOC: SC 14:12
PROVIDERS: ATTEND Nurse Practitioner Family
DX: G47.33 Obstructive sleep apnea (adult) (pediatric) (principal); F17.200 Nicotine dependence, unspecified, uncomplicated; E66.9 Obesity, unspecified; Z68.32 Body mass index [BMI] 32.0-32.9, adult
CPT/HCPCS: 99203; G0463; 99212

== ENCOUNTER 2022-08-06 17:40 | Emergency (ER) | payer MEDICARE ==
[2022-08-06] MEDS ORDERED: oxyCODONE 5 MG TABLET PO STA (18:41)
--- NOTE | 2022-08-06 18:53 | ED Physician Documentation ---
History of Present Illness - Stated complaint Stated Complaint: RT LEG SWOLLEN/RED/HOT - Chief complaint Chief Complaint: Wound - History obtained from History obtained from: Patient, Family - History of Present Illness Timing: Last night Pain level max: 8 Pain level now: 8 - Additonal information Additional information: Patient is a 67-year-old male who presents to the emergency department complaining of right lower extremity swelling and pain. He states that this started last night. He noticed a slight rash to the leg. The rash seems to be on both of the legs. He has not had any fevers. He is currently on colchicine for gout. He has neuropathy in both of his feet. He is also having right calf swelling and pain. Went to the walk-in clinic and was sent here for possible DVT. Review of Systems Constitutional: denies: Fever, Chills Nose: denies: Rhinorrhea / runny nose, Congestion Respiratory: denies: Cough GI: denies: Vomiting, Diarrhea Musculoskeletal: denies: Neck pain, Back pain Neurologic: denies: Headache PD PAST MEDICAL HISTORY - Past Medical History Cardiovascular: Hypertension, High cholesterol Respiratory: COPD Neuro: CVA Endocrine/Autoimmune: None GI: GERD, Colon polyps, Diverticulitis : None HEENT: Chronic hearing loss, Other Psych: Depression, Anxiety, Panic attacks Musculoskeletal: Osteoarthritis, Chronic back pain Derm: Psoriasis, Other - Past Surgical History Past Surgical History: Yes Ortho: Hip replacement, Knee replacement, Shoulder arthroplasty, Other - Present Medications Home Medications: Ambulatory Orders Medication Instructions Recorded Confirmed HYDROcodone/ACET 10/325 [[place] 10 1 tab PO DAILY 11/07/15 01/31/21 mg/325 mg] Metformin HCl [Metformin ER 1,000 mg PO BID 09/12/20 01/31/21 Gastric] Albuterol Sulfate [Proair 1 puffs INH DAILY 10/14/20 01/31/21 Digihaler] Furosemide [Lasix] 20 mg PO DAILY 10/14/20 01/31/21 Gabapentin [Neurontin] 600 mg PO TID 10/14/20 01/31/21 Indomethacin [Indocin] 50 mg PO DAILY 10/14/20 01/31/21 Losartan Potassium 25 mg PO DAILY 10/14/20 01/31/21 Metoprolol Succinate [Toprol Xl] 200 mg PO DAILY 10/14/20 01/31/21 Morphine Sulfate ER [Ms Contin] 30 mg PO DAILY 10/14/20 01/31/21 Spironolactone [Aldactone] 25 mg PO DAILY 10/14/20 01/31/21 Levetiracetam [Keppra] 500 mg PO BID 01/31/21 01/31/21 Tamsulosin [Flomax] 2 cap DAILY 02/26/21 02/26/21 Triamcinolone 0.1% Oint 1 applic TOP BID #80 gm 08/06/22 - Allergies Allergies/Adverse Reactions: Allergies Allergy/AdvReac Type Severity Reaction Status Date / Time No Known Drug Allergies Allergy Verified 08/06/22 17:57 - Social History Does the pt smoke?: Yes Smoking Status: Current every day smoker Does the pt drink ETOH?: No Does the pt have substance abuse?: No - Immunizations Immunizations are current?: Yes - POLST Patient has POLST: No PD ED PE NORMAL - Vitals Vital signs reviewed: Yes - General General: Alert and oriented X 3, No acute distress - HEENT HEENT: Moist mucous membranes - Neck Neck: Supple, no meningeal sign - Cardiac Cardiac: RRR, Strong equal pulses - Respiratory Respiratory: No respiratory distress, Clear bilaterally - Abdomen Abdomen: Soft, Non tender, Non distended - Derm Derm: Warm and dry - Extremities Extremities: No calf tenderness / cord (Mild calf tenderness right lower extremity. Normal examination of the bilateral feet other than a slight rash to the dorsum of the right foot), Other (There is a flat erythematous rash to the bilateral lower extremities. Areas are blanching, areas are nonblanching. No confluence. No open sores. No pustules. Not palpable.) - Neuro Neuro: Alert and oriented X 3 - Psych Psych: Normal mood, Normal affect Results - Vitals Vitals: Vital Signs - 24 hr 08/06/22 08/06/22 08/06/22 17:52 19:57 20:46 Temperature 37.0 C Heart Rate 84 78 80 Respiratory 18 18 18 Rate Blood Pressure 133/81 H 134/76 H 127/105 H O2 Saturation 95 97 94 Oxygen O2 Source Room air - Labs Labs: Laboratory Tests 08/06/22 08/06/22 08/06/22 19:12 19:12 19:12 WBC 4.3 L RBC 4.59 L Hgb 13.5 L Hct 41.2 L MCV 89.8 MCH 29.4 MCHC 32.8 RDW 11.9 L Plt Count 296 MPV 9.1 Neut # (Auto) 1.7 Lymph # (Auto) 1.7 [place] # (Auto) 0.5 Eos # (Auto) 0.4 Baso # (Auto) 0.1 Absolute Nucleated RBC 0.00 Nucleated RBC % 0.0 ESR 45 H Sodium 137 Potassium 4.1 Chloride 95 L Carbon Dioxide 28 Anion Gap 14.0 H BUN 20 Creatinine 0.8 Estimated GFR (MDRD) 97 Glucose 120 H Calcium 9.7 Total Bilirubin 0.9 AST 52 H ALT 37 Alkaline Phosphatase 93 C-Reactive Protein 1.1 H Total Protein 8.0 Albumin 4.3 Globulin 3.7 Albumin/Globulin Ratio 1.2 Urine Color Urine Clarity Urine pH Ur Specific [place] Urine Protein Urine Glucose (UA) Urine Ketones Urine Occult Blood Urine Nitrite Urine Bilirubin Urine Urobilinogen Ur Leukocyte Esterase Ur Microscopic Review Urine Culture Comments 08/06/22 20:20 WBC RBC Hgb Hct MCV MCH MCHC RDW Plt Count MPV Neut # (Auto) Lymph # (Auto) [place] # (Auto) Eos # (Auto) Baso # (Auto) Absolute Nucleated RBC Nucleated RBC % ESR Sodium Potassium Chloride Carbon Dioxide Anion Gap BUN Creatinine Estimated GFR (MDRD) Glucose Calcium Total Bilirubin AST ALT Alkaline Phosphatase C-Reactive Protein Total Protein Albumin Globulin Albumin/Globulin Ratio Urine Color YELLOW Urine Clarity CLEAR Urine pH 6.5 Ur Specific [place] 1.010 Urine Protein NEGATIVE Urine Glucose (UA) NEGATIVE Urine Ketones NEGATIVE Urine Occult Blood NEGATIVE Urine Nitrite NEGATIVE Urine Bilirubin NEGATIVE Urine Urobilinogen 0.2 (NORMAL) Ur Leukocyte Esterase NEGATIVE Ur Microscopic Review NOT INDICATED Urine Culture Comments NOT INDICATED - Rads (name of study) RLE US Radiology: Final report received, See rad report PD Medical Decision Making - ED course Complexity details: reviewed results, re-evaluated patient, considered differential, d/w patient ED course: Patient with a rash to the bilateral lower extremities, right worse than left. Duplex ultrasound is negative. His white blood cell count is normal. Mildly elevated ESR and CRP. No hematuria. Unclear etiology of the rash. He did start colchicine but started that this morning. He is not on any antifungals. Does not appear to have any tinea pedis. We will trial on a triamcinolone cream and have him follow-up with dermatology for further care. Patient is well- appearing, nontoxic. Afebrile. Patient counseled regarding signs and symptoms for which I believe and urgent re-evaluation would be necessary. Patient with good understanding of and agreement to plan and is comfortable going home at this time This document was made in part using voice recognition software. While efforts are made to proofread this document, sound alike and grammatical errors may occur. Departure - Departure Disposition: 01 Home, Self Care Clinical Impression: Dermatitis Condition: Good Instructions: ED Dermatitis Non Specific Rash Follow-Up: [facility] [Provider Group] Dimitrios Le DO [Primary Care Provider] - Within 1 week Prescriptions: Triamcinolone 0.1% Oint 1 applic TOP BID #80 gm Comments: Please follow-up with dermatology for further care. We will try you on steroids to see if this improves your symptoms. Please continue your current medications at home. This should start to improve over the next 24 to 48 hours. If you are worsening, please return for repeat evaluation. Your prescription was sent to [facility] in [place]. Elizabeth Carmen [facility] [address] [place] [address] Discharge Date/Time: 08/06/22 21:01
[2022-08-06 19:17] LABS: BASOPHILS # (AUTO) 0.1 10^3/uL (0.0-0.1); BASOPHILS % (AUTO) 1.2 %; EOSINOPHILS # (AUTO) 0.4 10^3/uL (0.0-0.7); EOSINOPHILS % (AUTO) 8.6 %; HCT - HEMATOCRIT 41.2 % (42.0-52.0); HGB - HEMOGLOBIN 13.5 g/dL (14.0-18.0); LYMPHOCYTES # (AUTO) 1.7 10^3/uL (1.5-3.5); LYMPHOCYTES % (AUTO) 40.7 %; MEAN CORPUSCULAR HEMOGLOBIN 29.4 pg (27.0-31.0); MEAN CORPUSCULAR HGB CONC 32.8 g/dL (32.0-36.0); MEAN CORPUSCULAR VOLUME 89.8 fL (80.0-94.0); MEAN PLATELET VOLUME 9.1 fL (7.4-11.4); MONOCYTES # (AUTO) 0.5 10^3/uL (0.0-1.0); MONOCYTES % (AUTO) 10.7 %; NEUTROPHILS # (AUTO) 1.7 10^3/uL (1.5-6.6); NEUTROPHILS % (AUTO) 38.6 %; PLT - PLATELET COUNT 296 10^3/uL (130-450); RED BLOOD COUNT 4.59 10^6/uL (4.70-6.10); RED CELL DISTRIBUTION WIDTH 11.9 % (12.0-15.0); WHITE BLOOD COUNT 4.3 x10^3/uL (4.8-10.8)
[2022-08-06 19:35] LABS: ALBUMIN 4.3 g/dL (3.2-5.5); ALBUMIN/GLOBULIN RATIO 1.2 (1.0-2.2); BILIRUBIN,TOTAL 0.9 mg/dL (0.2-1.0); CALCIUM 9.7 mg/dL (8.5-10.3); CREATININE 0.8 mg/dL (0.6-1.2); CRP - C-REACTIVE PROTEIN 1.1 mg/dL (0-1.0); POTASSIUM 4.1 mmol/L (3.5-5.0)
[2022-08-06 20:26] LABS: BILIRUBIN,URINE NEGATIVE (NEGATIVE); GLUCOSE, URINE (UA) NEGATIVE (NEGATIVE); KETONES,URINE (UA) NEGATIVE (NEGATIVE); LEUKOCYTE ESTERASE, URINE NEGATIVE (NEGATIVE); NITRITE,URINE NEGATIVE (NEGATIVE); OCCULT BLOOD,URINE NEGATIVE (NEGATIVE); PH,URINE 6.5 PH (5.0-7.5); PROTEIN,URINE NEGATIVE (NEGATIVE); UROBILINOGEN,URINE 0.2 (NORMAL) E.U./dL (NORMAL)
[2022-08-06 20:27] LABS: CLARITY,URINE CLEAR (CLEAR)
[2022-08-06] MEDS ORDERED: MORPHINE IR 15 MG TABLET PO STA (20:27)
[2022-08-06 20:48] VITALS: BP 127/105
--- NOTE | 2022-08-06 20:55 | Ultrasound Report ---
PROCEDURE: Duplex Ext Veins Right INDICATIONS: RLE swelling, pain TECHNIQUE: Real-time imaging, as well as color and pulse Doppler interrogation, were performed of the lower extr emity deep veins from the inguinal ligament to the popliteal fossa. COMPARISON: None. FINDINGS: The deep veins are normally compressible, and free of intraluminal thrombus. Color and pu lse Doppler demonstrate normal phasic intraluminal flow. There is normal augmentation response to di stal compression maneuver. IMPRESSION: 1. No evidence of deep venous thrombosis in the right lower extremity. Reviewed by: Xu Rivera MD on 08/06/2022 8:54 PM PST Approved by: Xu Rivera MD on 08/06/2022 8:54 PM PST Station ID: [id number]
== END 2022-08-06 21:01 | disposition home or self-care (01) ==
LOC: ED 17:40
DX: L30.9 Dermatitis, unspecified (principal); I10 Essential (primary) hypertension; J44.9 Chronic obstructive pulmonary disease, unspecified; F17.200 Nicotine dependence, unspecified, uncomplicated; Z79.84 Long term (current) use of oral hypoglycemic drugs; Z79.899 Other long term (current) drug therapy; Z79.51 Long term (current) use of inhaled steroids; Z86.73 Personal history of transient ischemic attack (TIA), and cerebral infarction without residual deficits
CPT/HCPCS: 36415; 80053; 81003; 85025; 85651; 86140; 93971; 99284; A9270; 81001; 87086

== ENCOUNTER 2022-10-29 01:30 | Outpatient (CLI) | payer MEDICARE | END 2022-10-29 01:31 | disposition E | LOC: EMS 01:30 | DX: I46.9 Cardiac arrest, cause unspecified (principal) | CPT/HCPCS: A0425; A0428 ==